=== PATIENT | female | born 1970 | race Caucasian/White ===

== ENCOUNTER → 2017-08-14 07:20 | Outpatient (CLI) | payer OTHER, SELFPAY ==
--- NOTE | 2017-08-14 07:20 | DT_ITS ---
This patient was seen during an EMR downtime August 12, 2017 - August 19, 2017. This patient may have a combination of paper and electronic documentation or all paper documentation. All documentation is viewable within the e-chart portion of [facility] for each patient visit.
--- NOTE | 2017-08-14 07:25 | BI_ITS ---
MAMMOGRAPHY - BILATERAL SCREENING REASON FOR EXAM: Female, 47 years old. Routine annual screening examination. PERTINENT HISTORY: NO FAM HX - RT ASPIRATION 1984 - U/S DONE AFTER LAST MAMM OF 2015 TECHNIQUE: Digital bilateral breast gage (3D mammographic acquisition) in the CC and MLO projections. 2-D mediolateral oblique (MLO) and craniocaudad (CC) views of both breasts were obtained. CAD: Full Field Digital Mammography with Computer Added Detection was performed. COMPARISON: 01/05/2016, 01/26/2014. FINDINGS: Breast Composition: The breasts are heterogeneously dense, which may obscure small masses. There are no dominant masses or suspicious calcifications. No other significant abnormalities are identified. BI/SCREENING MAMM (CAD), BILAT IMPRESSION: Stable bilateral screening mammogram. Yearly follow-up mammogram recommended. (A) ASSESSMENT CATEGORY: BIRADS Category 2: Benign. A letter regarding these results will be sent to the patient by the facility within 30 days. Approximately 10% of breast cancers are not detected by mammography. A normal mammogram should not delay biopsy of a clinically suspicious abnormality. [id number] Electronically Signed: Marcial Penn MD at 14:42 EDT Tel , Service support ,
== END ==
PROVIDERS: Family Provider Family Medicine; PCP Family Medicine; Visit Provider Family Medicine
DX: Z12.31 Encounter for screening mammogram for malignant neoplasm of breast (principal)
CPT/HCPCS: 77063; 77067

== ENCOUNTER → 2017-08-21 18:40 | Outpatient (CLI) | payer OTHER, SELFPAY ==
[2017-08-21 18:42] LABS: Bacteria 0 SEEN /hpf (None Seen); Mucous, Urine 0 SEEN /hpf (<or=2+); Red Blood Cells-Urine 0 SEEN /hpf (0-5); Squamous Epithelial Cells - UA 0 SEEN /hpf (5-10); White Blood Cells 0 SEEN /hpf (0-5)
[2017-08-21 19:11] LABS: Color, Urine Yellow (Yellow); Glucose, Dipstick Normal (Normal); Ketone-Dipstick Negative (Negative); Leukocyte Esterase-Dipstick 25 /ul (Negative); Nitrite-Dipstick Negative (Negative); Occult Blood-Urine Negative /ul (Negative); Protein-Dipstick Negative (Negative); Specific Gravity, Urine 1.005 (1.002-1.030); Urine Bilirubin Dipstick Negative (Negative); Urine Clarity Clear (Clear); Urine Urobilinogen Normal (Normal)
== END ==
PROVIDERS: Physician Assistant; Visit Provider Physician Assistant
DX: R30.0 Dysuria (principal)
CPT/HCPCS: 81001; 87086; 87088

== ENCOUNTER → 2018-03-07 10:26 | Outpatient (CLI) | payer OTHER, SELFPAY ==
[2017-10-25 11:16] VITALS: BMI 38.5
--- NOTE | 2018-03-07 10:30 | RAD_ITS ---
STUDY: X-RAY - LEFT HIP REASON FOR EXAM: Female, 47 years old. Gallbladder problems thank you thank you for TECHNIQUE: 2 views of the hip. COMPARISON: None. FINDINGS: Bilateral bipolar hip replacement seen. No obvious complication identified . Both iliac bones and sacroiliac joints are unremarkable. Calcifications noted around the right hip. RAD/HIP, UNI W/ Pelvis 2-3 Views IMPRESSION: Bilateral bipolar hip replacement. Electronically Signed: Reena De Leon, at 16:58 EST Tel , Service support ,
--- NOTE | 2018-03-07 10:33 | RAD_ITS ---
STUDY: X-RAY - LUMBAR SPINE REASON FOR EXAM: Female, 47 years old. TECHNIQUE: view(s) of the lumbar spine were obtained. COMPARISON: None FINDINGS: There is moderate rotoscoliosis of the lumbar spine convexity to the left. Otherwise the vertebral bodies are of normal height. No spondylolysis or spondylolisthesis seen. No significant narrowing of the disc spaces. RAD/L/S Spine Min 4 Views IMPRESSION: Levoscoliosis of the thoracolumbar junction with convexity to the left. Electronically Signed: Reena De Leon, at 16:55 EST Tel , Service support ,
== END ==
PROVIDERS: Family Provider Family Medicine; PCP Family Medicine; Referring Provider Family Medicine; Visit Provider Family Medicine
DX: M25.552 Pain in left hip (principal); M54.40 Lumbago with sciatica, unspecified side
CPT/HCPCS: 72110; 73502

== ENCOUNTER → 2018-03-21 07:04 | Outpatient (CLI) | payer OTHER, SELFPAY ==
--- NOTE | 2018-03-21 07:17 | MRI_ITS ---
STUDY: MRI LUMBAR SPINE WITHOUT CONTRAST REASON FOR EXAM: Female, 47 years old. LBP, Left leg pain, numbness left lower leg, NKI. TECHNIQUE: Standardized fat and water weighted pulse sequences were obtained in the sagittal and axial planes. COMPARISON: None FINDINGS: T12-L1: Sagittal only. There is moderate disc space narrowing and endplates spondylosis. Moderate right foraminal stenosis. Normal lumbar lordosis. There is a levoscoliosis of the lumbar spine. Normal conus medullaris that terminates at the T12 L1-2: There is moderate disc space narrowing and endplates spondylosis. L2-3: There is moderate disc space narrowing and endplates spondylosis. There is a moderate disc osteophyte complex asymmetric to the right with moderate right foraminal stenosis. There is no significant central canal or left foraminal stenosis. L3-4: There is moderate disc space narrowing and endplates spondylosis. There is a moderate disc osteophyte complex asymmetric to the left with severe left foraminal stenosis. There is no significant central canal or right foraminal stenosis. L4-5: There is minimal disc space narrowing and endplates spondylosis. There is no significant central canal or foraminal stenosis. There is moderate facet arthropathy. L5-S1: There is minimal disc space narrowing and endplates spondylosis. There is no significant central canal or foraminal stenosis. There is moderate facet arthropathy. Normal visualized sacral ala. Normal visualized paraspinous soft tissue structures. MRI/Spine Lumbar (Routine) IMPRESSION: Scoliosis and multilevel degenerative changes. L2/L3: Moderate right foraminal stenosis. L3/L4: Severe left foraminal stenosis. Electronically Signed: Birgit Redd MD at 11:02 EST Tel , Service support ,
== END ==
PROVIDERS: Family Provider Family Medicine; PCP Family Medicine; Referring Provider Family Medicine; Visit Provider Family Medicine
DX: M54.10 Radiculopathy, site unspecified (principal); M54.5 Low back pain; M25.552 Pain in left hip
CPT/HCPCS: 72148

== ENCOUNTER 2018-08-08 09:30 | Outpatient (RCR) | payer OTHER, SELFPAY ==
--- NOTE | 2018-06-18 12:50 | HP.PTEVAL ---
Patient's Visit Information JOSSE WARNER is a 47 year old F referred to Physical Therapy by Evangelist Holely DO with a diagnosis of LUMBAR MICRODISCECTOMY LEFT L34 ON 05/30/18.. Date of Evaluation: 06/18/18 Physical Therapist: Mary Orlando PT, Cert MDT - Visit Plan Frequency: 2-3x /Week Duration: 4-6 Weeks Plan: POSTURE CORRECTION/STRENGTHENING, INSTRUCTION IN APPROPRIATE BODY MECHANICS AND ACTIVITY MODIFICATIONS. DLS STARTING WITH A NEUTRAL SPINE X 3 WEEKS PROGRESSING ROM TOLERATED. VINCENT LE ROM, STRETCHING AND STRENGTHENING. HEP INSTRUCTION. 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 CURRENTLY OFF WORK WITH TENTATIVE RTW DATE OF AUGUST 11 2018. OFF WORK SINCE MAY 29 2018. Disability: NO. Present symptoms: LOW BACK PAIN. NO PAIN, NUMBNESS OR TINGLING VINCENT LE'S CURRENTLY. Present since: MAR 01 2018. Pain Scale: WORST 6/10, LEAST 2/10. Currently: 2/10. Commenced as a result of: NO APPARENT REASON. Symptoms at onset: PAIN IN LEFT GROIN AND HIP. Worse: EVENINGS. Better: LYING DOWN. Disturbed sleep: YES. Previous history/Previous treatment: PATIENT REPORTS EPISODIC LBP X ABOUT 25 YEARS. PHYSICAL THERAPY IN THE PAST. NO CHIRO. NO PRIOR SX. NO PAIN MGMT OR ANI'S. THIS EPISODE LEFT LEG KEPT GIVING OUT AT ONSET AND FELL THREE TIMES PRIOR TO SX. WENT BACK TO WORK WITH LLE NUMB AND KNEE BRACE. DID FALL AT WORK. Coughing/sneezing/straining: POSITIVE. Gait: NORMAL. NO ASSISTIVE DEVICES. NO FALLS SINCE SURGERY. Difficulty initiating urinatin: NO. Accidents: NO. Unexplained weight loss: NO. Imaging: MRI PRIOR TO SX: REASON FOR EXAM: Female, 47 years old. LBP, Left leg pain, numbness. left lower leg, NKI. TECHNIQUE: Standardized fat and water weighted pulse sequences were. obtained in the sagittal and axial planes. COMPARISON: None. . FINDINGS: T12-L1: Sagittal only. There is moderate disc space narrowing and. endplates spondylosis. Moderate right foraminal stenosis. Normal lumbar lordosis. There is a levoscoliosis of the lumbar spine. Normal conus medullaris that terminates at the T12. L1-2: There is moderate disc space narrowing and endplates spondylosis. L2-3: There is moderate disc space narrowing and endplates spondylosis. There is a moderate disc osteophyte complex asymmetric to the right with. moderate right foraminal stenosis. There is no significant central canal. or left foraminal stenosis. L3-4: There is moderate disc space narrowing and endplates spondylosis. There is a moderate disc osteophyte complex asymmetric to the left with. severe left foraminal stenosis. There is no significant central canal or. right foraminal stenosis. L4-5: There is minimal disc space narrowing and endplates spondylosis. There is no significant central canal or foraminal stenosis. There is. moderate facet arthropathy. L5-S1: There is minimal disc space narrowing and endplates spondylosis. There is no significant central canal or foraminal stenosis. There is. moderate facet arthropathy. Normal visualized sacral ala. Normal visualized paraspinous soft tissue structures. . MRI/Spine Lumbar (Routine). IMPRESSION: Scoliosis and multilevel degenerative changes. . L2/L3: Moderate right foraminal stenosis. . L3/L4: Severe left foraminal stenosis. . PMH: UNREMARKABLE. Recent major surgery: VINCENT THR'S, RIGHT 2010, LEFT 2012. PLOF (Prior Level of Function): UNLIMITED PRIOR TO FEB 2018. CURRENT SURGERY: LUMBAR MICRODISCECTOMY LEFT L3-L4 ON 05/30/18 (CURRENTLY ALMOST 3 WEEKS PO. CAUGHT A COLD FROM FAMILY LAST WEEK AND IS COUGHING. GOT A STOMACH BUG AFTER SURGERY TOO. - Objective Sitting/Standing Posture: RIGHT ILIAC CREST HIGHER THAN LEFT. LEFT HEEL LIFT. SCOLIOSIS. REDUCED LORDOSIS. Active Correction of posture: BETTER. ALSO FEELS A LOT BETTER WITH SUPPORT IN LOW BACK. Other Observations: INDEP GAIT INTO PT WITHOUT ANY ASSISTIVE DEVICES OR LOSS OF BALANCE. A LITTLE BIT OF A WADDLE TYPE GAIT. Motor deficit: RIGHT LE 5/5 EXCEPT HIP GRADED 4/5. LEFT LE: HIP 3+/5, KNEE EXT 4-/5, KNEE FLEX 4-/5, ANKLE 5/5. Sensory deficit: VINCENT LE LIGHT TOUCH SENSATION INTACT AND SYMMETRICAL. ROM deficit: TIGHT VINCENT HS'S LEFT > RIGHT. Reflexes: NT. Dural Signs: POSITIVE VINCENT LE'S. Lumbar mvmt loss: NT. Core strength: POOR. Palpation: INCISION LOOKS GOOD WITHOUT ANY SIGNS OF DRAINAGE OR INFECTION. PATIENT TO MONITOR DAILY. - Goals Goal 1:: DECREASE C/O LBP Goal Time Frame: 4-6 Weeks Goal 2:: IMPROVE PERSONAL CARE, LIFTING, WALKING, SITTING, STANDING, SLEEP, SOCIAL LIFE, TRAVEL AND HOMEMAKING FUNCTION Goal Time Frame: 4-6 Weeks Goal 3:: INSTRUCT IN PROPHYLAXIS Goal Time Frame: 4-6 Weeks - Rehabilitation Potential Rehabilitation Potential: Good - Anticipated Interventions Patient/Client Instruction: Educate patient on: Condition, Plan of Care, Risk Factors, Benefits of Fitness Program For the Purpose of:: To improve self management Therapeutic Exercise to Include: Strength training, Body mechanics, Postural training, Flexibilty training, Dynamic Lumbar Stabilization For the Purpose of:: To decrease pain, To improve muscle performance and motor function, To increase tolerance to activity/condition/position, To improve ability of physical actions for home/community/work/leisure, To improve gait and locomotor functions Thank you for the opportunity to evaluate your patient. For Medicare and Medicare HMO plans, please review the plan of care and approve it. It will need to be FAXED BACK to us at [phone] for Medicare purposes. For Medicare only, by signing this I certify the plan of care. Please let me know if there are questions or concerns regarding this plan of care. Physician Signature: Date:
--- NOTE | 2018-07-09 10:58 | HP.PTREVAL ---
Evangelist Holley, DO, It has been my pleasure to treat JOSSE WARNER over the last 9 visits for LUMBAR MICRODISCECTOMY LEFT L3-L4 ON 05/30/18.. Please see the progress note below for an update on the physical therapy plan of care! Subjective: PATIENT REPORTS HER FIRST POOL VISIT WENT WELL. STATES SHE IS DOING HER HEP AND GETTING READY TO LEAVE ON VACATION. WILL TAKE THE BANDS WITH HER. PATIENT REPORTS HER LEFT LEG IS GETTING STRONGER AND SHE HASN'T HAD ANY MORE FALLS. Objective/Function: Sitting/Standing Posture: RIGHT ILIAC CREST HIGHER THAN LEFT. LEFT HEEL LIFT. SCOLIOSIS. REDUCED LORDOSIS. Active Correction of posture: BETTER. ALSO FEELS A LOT BETTER WITH SUPPORT IN LOW BACK. Other Observations: INDEP GAIT INTO PT WITHOUT ANY ASSISTIVE DEVICES OR LOSS OF BALANCE. LESS WADDLE TYPE GAIT. Motor deficit: RIGHT LE 5/5 EXCEPT HIP GRADED 4/5. LEFT LE: HIP FLEX 4-/5, IR 4-/5, EXTENSION 3+/5, EXTERAL ROATION 3+/5. KNEE EXT 4/5, KNEE FLEX 4/5, ANKLE 5/5. Sensory deficit: VINCENT LE LIGHT TOUCH SENSATION INTACT AND SYMMETRICAL. ROM deficit: TIGHT VINCENT HS'S LEFT > RIGHT. Reflexes: NT. Dural Signs: NEGATIVE VINCENT LE'S. Core strength: POOR. Palpation: INCISION LOOKS GOOD WITHOUT ANY SIGNS OF DRAINAGE OR INFECTION. LUMBAR MVMT LOSS: FLEX - MOD. EXT - MOD. RSG - ANAIS. LSG - MOD. PATIENT DENIES INCREASED PAIN WITH LUMBAR ROM TESTING ALL PLANES TODAY. LUMBAR OSWESTRY SCORE HAS IMPROVED FROM 20 TO 11. Plan Plan: RECOMMEND CONT PT 2-3 TIMES A WEEK X 4-6 WEEKS...WHEN PATIENT RETURNS FROM VACATION PLAN PRE TO HELP PATIENT PREPARE FOR LIFTING, PUSHING AND PULLING AT WORK WITH RTW DATE OF AUGUST 11 2018. PATIENT ESPECIALLY NEEDS LEFT HIP ABD, EXT AND EXTERNAL ROTATION STRENGTHENING. SHE HAS HOME EX'S FOR THIS TOO. PATIENT AGREEABLE. Goals Goal 1:: DECREASE C/O LBP Goal Time Frame: 4-6 Weeks Goal Progress: Progressing Goal 2:: IMPROVE PERSONAL CARE, LIFTING, WALKING, SITTING, STANDING, SLEEP, SOCIAL LIFE, TRAVEL AND HOMEMAKING FUNCTION Goal Time Frame: 4-6 Weeks Goal Progress: Progressing Goal 3:: INSTRUCT IN PROPHYLAXIS Goal Time Frame: 4-6 Weeks Goal Progress: Progressing Anticipated Interventions Patient/Client Instruction: Educate patient on: Condition, Plan of Care, Risk Factors, Benefits of Fitness Program For the Purpose of:: To improve self management Therapeutic Exercise to Include: Strength training, Body mechanics, Postural training, Flexibilty training, Dynamic Lumbar Stabilization For the Purpose of:: To decrease pain, To improve muscle performance and motor function, To increase tolerance to activity/condition/position, To improve ability of physical actions for home/community/work/leisure, To improve gait and locomotor functions Please do not hesitate to contact me at [phone] by phone or if you have questions or concerns regarding this new plan of care! Sincerely, Mary Orlando, PT, Cert MDT
--- NOTE | 2018-08-08 15:51 | HP.PTDCSUM ---
HP - PT D/C Summary It has been my pleasure to treat JOSSE WARNER under orders from Evangelist Holley DO, for the diagnosis of LUMBAR MICRODISCECTOMY LEFT L3-L4 ON 05/30/18. for a total of 16 visit(s). Discharge Date: 08/08/18 Please see the following information for a summary of their discharge status. - Subjective Subjective: PATIENT REPORTS THE POOL HELPED HER WORK ON HER POSTURE. 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 STATES SHE FEELS READY TO GO BACK TO WORK. SHE REPORTS SHE IS PAINFREE A GOOD PART OF THE DAY NOW AND IS AT LEAST 90% BETTER. PATIENT REPORTS SHE IS A LOT STRONGER, HAVING LESS PAIN AND WALKING BETTER. STATES SHE HASN'T BEEN DOING THIS GOOD FOR OVER 6 YEARS. - Pain LOW BACK Pain Intensity (Out of 10): 1 - Overall Improvement % Improvement: 90 - Objective Objective/Function: UPON EXAM TODAY: PATIENT DEMONSTRATES INDEP GAIT INTO PT WITHOUT ANY ASSISTIVE DEVICES OR LOSS OF BALANCE. SHE IS WALKING WITH A MORE NORMAL BASE OF SUPPORT WITH TOES POINTING FORWARD VS THE WIDER BASE OF SUPPORT WITH TOES POINTING OUT LIKE BEFORE. Motor deficit: RIGHT LE 5/5. LEFT LE: HIP FLEX 4/5, IR 4/5, EXTERAL ROATION 3+/5. KNEE EXT 5/5, KNEE FLEX 5/5, ANKLE 5/5. Sensory deficit: VINCENT LE LIGHT TOUCH SENSATION INTACT AND SYMMETRICAL. ROM deficit: TIGHT VINCENT HS'S LEFT > RIGHT. Reflexes: NT. Dural Signs: NEGATIVE VINCENT LE'S. Core strength: POOR. LUMBAR MVMT LOSS: FLEX - MIN. EXT - MIN. RSG - MOD. LSG - MIN. PATIENT DENIES INCREASED PAIN WITH LUMBAR ROM TESTING ALL PLANES TODAY. LUMBAR OSWESTRY SCORE HAS IMPROVED FROM 20 TO 11 AND NOW 5. - Goals Goal 1:: DECREASE C/O LBP Goal Progress: Goal Met Goal 2:: IMPROVE PERSONAL CARE, LIFTING, WALKING, SITTING, STANDING, SLEEP, SOCIAL LIFE, TRAVEL AND HOMEMAKING FUNCTION Goal Progress: Goal Met Goal 3:: INSTRUCT IN PROPHYLAXIS Goal Progress: Goal Met - Plan Plan: D/C TO INDEP EX. PATIENT AGREEABLE. - D/C Information If there are questions or concerns regarding this patient's physical therapy, please feel free to call me at [phone]. Thank you for the referral of this patient. Sincerely, Mary Orlando PT, Cert MDT
== END 2018-08-08 19:00 | disposition home or self-care (01) ==
LOC: PT 09:30
PROVIDERS: Family Provider Family Medicine; PCP Family Medicine; Referring Provider Orthopaedic Surgery; Visit Provider Orthopaedic Surgery
DX: Z48.89 Encounter for other specified surgical aftercare (principal)
CPT/HCPCS: 97110; 97113; 97162; 97530

== ENCOUNTER → 2018-08-11 | Outpatient (CLI) | payer OTHER, SELFPAY ==
[2017-10-25 11:16] VITALS: BMI 38.5
--- NOTE | 2018-08-11 08:43 | BI_ITS ---
MAMMOGRAPHY - BILATERAL SCREENING REASON FOR EXAM: Female, 48 years old. Routine annual screening examination. PERTINENT HISTORY: Non-contributory. TECHNIQUE: Digital bilateral breast jameson (3D mammographic acquisition) in the CC and MLO projections. 2-D mediolateral oblique (MLO) and craniocaudad (CC) views of both breasts were obtained. CAD: Full Field Digital Mammography with Computer Added Detection was performed. COMPARISON: Comparison is made with prior study dated 04/16/2018 and January 05, 2016. FINDINGS: Breast Composition: There are scattered areas of fibroglandular density. There are no dominant masses or suspicious calcifications. Stable appearance of the small some centimeter nodular densities in the deep mid left breast. No other significant abnormalities are identified. There has been no significant change since the prior study. BI/SCREEN MAMM (CAD) W/JAMESON BILAT IMPRESSION: Stable bilateral screening mammogram. Yearly follow-up mammogram recommended. (A) ASSESSMENT CATEGORY: BIRADS Category 2: Benign. A letter regarding these results will be sent to the patient by the facility within 30 days. Approximately 10% of breast cancers are not detected by mammography. A normal mammogram should not delay biopsy of a clinically suspicious abnormality. [id number] Electronically Signed: Bentley Landa, at 12:46 EDT , Service support ,
== END | disposition home or self-care (01) ==
LOC: OPBI 08:41
PROVIDERS: Family Provider Family Medicine; PCP Family Medicine; Referring Provider Obstetrics & Gynecology; Visit Provider Obstetrics & Gynecology
DX: Z12.31 Encounter for screening mammogram for malignant neoplasm of breast (principal)
CPT/HCPCS: 77063; 77067

== ENCOUNTER → 2018-11-17 13:35 | Outpatient (CLI) | payer OTHER, SELFPAY ==
[2018-11-12 09:11] VITALS: BMI 38.5
--- NOTE | 2018-11-17 13:36 | US_ITS ---
STUDY: ULTRASOUND OF THE PELVIS CLINICAL: Female, 48 years old. Fibroids TECHNIQUE: Transvaginal and transabdominal COMPARISON: None. FINDINGS: Normal uterine size measuring 11.4 x 8.0 x 6.2 cm in maximal craniocaudal dimension. There are multiple fibroids with the largest measuring 4.3 x 3.6 x 4.6 cm. Smaller fibroids measure 1.7 cm. Normal endometrial thickness measuring 11 mm. There are no endometrial masses, and there is no fluid in the endometrial cavity. Nabothian cyst at the uterine cervix. The ovaries are not visualized. There is no free fluid in the pelvis. US/Transvaginal Non- IMPRESSION: Uterine fibroids. Nabothian cyst. Electronically Signed: Andrew Price DO at 23:13 EDT Tel [phone], Service support ,
== END ==
PROVIDERS: Family Provider Family Medicine; PCP Family Medicine; Referring Provider Obstetrics & Gynecology; Visit Provider Obstetrics & Gynecology
DX: D25.9 Leiomyoma of uterus, unspecified (principal)
CPT/HCPCS: 76830

== ENCOUNTER → 2019-02-02 14:47 | Outpatient (CLI) | payer OTHER, SELFPAY ==
[2019-02-02 07:48] VITALS: BMI 38.5
[2019-02-02 15:01] LABS: Bacteria 0 SEEN /hpf (None Seen); Mucous, Urine 0 SEEN /hpf (<or=2+); Squamous Epithelial Cells - UA 0 SEEN /hpf (5-10)
[2019-02-02 15:54] LABS: Color, Urine Yellow (Yellow); Glucose, Dipstick Normal (Normal); Ketone-Dipstick Negative (Negative); Leukocyte Esterase-Dipstick 100 /ul (Negative); Nitrite-Dipstick Negative (Negative); Occult Blood-Urine 10 /ul (Negative); Protein-Dipstick Negative (Negative); Urine Bilirubin Dipstick Negative (Negative); Urine Clarity Clear (Clear); Urine Urobilinogen Normal (Normal)
[2019-02-02 16:14] LABS: Red Blood Cells-Urine 0-5 SEEN /hpf (0-5); White Blood Cells 0-5 SEEN /hpf (0-5)
== END ==
PROVIDERS: Family Provider Family Medicine; PCP Family Medicine; Referring Provider Physician Assistant Surgical; Visit Provider Physician Assistant Surgical
DX: R35.0 Frequency of micturition (principal)
CPT/HCPCS: 81001; 87086; 87088

== ENCOUNTER → 2019-02-16 17:45 | Outpatient (CLI) | payer OTHER, SELFPAY ==
[2019-02-16 11:10] VITALS: BMI 38.5
== END ==
PROVIDERS: PCP Family Medicine; Visit Provider Obstetrics & Gynecology
DX: N39.0 Urinary tract infection, site not specified (principal)
CPT/HCPCS: 87086; 87088

== ENCOUNTER 2019-04-10 07:33 | Outpatient (RCR) | payer OTHER, SELFPAY ==
[2019-02-16 11:10] VITALS: BMI 38.5
--- NOTE | 2019-04-13 14:58 | MASS.EVAL_ITS ---
Massage Therapy Evaluation: Initial Evaluation Date: 04/10/2019 SUBJECTIVE: Anny is a 48 year old female who was referred to the [facility] facility for a massotherapy evaluation by Dr. Quevedo with the diagnosis of neck and low back pain. She presents today with the symptoms of pain, stiffness and tension in the neck, mid back, low back and hips. She also has a history of a microdiscectomy procedure in May 2018. She has had a great response to her surgery. OBJECTIVE: Upon observation Anny has some posture issues with her head and shoulders forward from the neutral position in sitting and standing. After examination and palpation, I found Anny to have high muscle tension with tenderness and myofascial restrictions in her sub occipitals, levator scapulae, trapezius, rhomboids, scalenes, and thoracic paraspinals. Her QL?s, lumbar paraspinals, piriformis, glute medius and minimus all were very tight with fascial restrictions, tender points and trigger points. The first treatment consisted of a one hour massage to her upper body with myofascial release, muscle stripping, trigger point compression techniques, and cervical manual traction. ASSESSMENT: I feel that Anny is a good candidate for massotherapy at this time. She had a favorable response to the first treatment with reduction in her muscle aches, pain and tension. She also had improvement in her cervical flexibility and low back flexibility. PLAN: The plan of care was reviewed with the patient. The patient is to be seen on an as needed basis for a total of ten sessions with the recommendation of once every month for a one hour treatment.
--- NOTE | 2020-02-17 17:08 | DS.PCM_ITS ---
Massage Therapy Discharge Summary: Discharge Date: 02/17/2020 Anny was seen for a massotherapy evaluation on 04/10/2019 with the diagnosis of neck and low back pain. She was treated with one sessions of massage therapy consisting of deep pressure soft tissue techniques, myofascial release and trigger point compression to her cervical, thoracic, lower back and hips. At this time this patient is being discharged from our care at [facility] facility.
== END 2019-04-10 19:00 | disposition home or self-care (01) ==
LOC: MASS 07:33
PROVIDERS: Family Provider Family Medicine; PCP Family Medicine; Referring Provider Family Medicine; Visit Provider Family Medicine
DX: M54.2 Cervicalgia (principal); M54.5 Low back pain
CPT/HCPCS: 97124

== ENCOUNTER → 2019-04-27 10:28 | Outpatient (REF) | payer OTHER, SELFPAY ==
[2019-04-27 09:35] VITALS: BMI 41.2
== END ==
LOC: HPRAD 10:28
PROVIDERS: PCP Family Medicine; Referring Provider Chiropractor; Visit Provider Chiropractor
DX: M41.9 Scoliosis, unspecified (principal); M99.03 Segmental and somatic dysfunction of lumbar region; M99.05 Segmental and somatic dysfunction of pelvic region
CPT/HCPCS: 72110

== ENCOUNTER → 2019-09-09 07:40 | Outpatient (CLI) | payer OTHER, SELFPAY ==
[2019-05-26 09:14] VITALS: BMI 41.2
--- NOTE | 2019-09-09 07:36 | BI_ITS ---
MAMMOGRAPHY - BILATERAL SCREENING REASON FOR EXAM: Female, 49 years old. Routine annual screening examination. PERTINENT HISTORY: Non-contributory. TECHNIQUE: Digital bilateral breast jameson (3D mammographic acquisition) in the CC and MLO projections. 2-D mediolateral oblique (MLO) and craniocaudad (CC) views of both breasts were obtained. CAD: Full Field Digital Mammography with Computer Added Detection was performed. COMPARISON: Comparison is made with prior examination dated August 11, 2018 and August 14, 2017. FINDINGS: Breast Composition: There are scattered areas of fibroglandular density. There are no dominant masses or suspicious calcifications. Stable appearance of the small subcentimeter well-defined nodular densities in the deep midportion of the left breast. No other significant abnormalities are identified. There has been no significant change since the prior study. BI/SCREEN MAMM (CAD) W/JAMESON BILAT IMPRESSION: Stable bilateral screening mammogram. Yearly follow-up mammogram recommended. (A) ASSESSMENT CATEGORY: BIRADS Category 2: Benign. A letter regarding these results will be sent to the patient by the facility within 30 days. Approximately 10% of breast cancers are not detected by mammography. A normal mammogram should not delay biopsy of a clinically suspicious abnormality. [id number] Electronically Signed: Bentley Landa, at 9:15 EDT , Service support ,
== END ==
PROVIDERS: PCP Family Medicine; Referring Provider Family Medicine; Visit Provider Family Medicine
DX: Z12.31 Encounter for screening mammogram for malignant neoplasm of breast (principal)
CPT/HCPCS: 77063; 77067

== ENCOUNTER → 2019-11-17 06:49 | Outpatient (CLI) | payer OTHER, SELFPAY ==
[2019-05-26 09:14] VITALS: BMI 41.2
--- NOTE | 2019-11-17 06:50 | CT_ITS ---
STUDY: CT ABDOMEN AND PELVIS WITH AND WITHOUT CONTRAST REASON FOR EXAM: Female, 49 years old. HEMATURIA, RECURRENT UTI RADIATION DOSAGE (If Supplied By Facility): CTDIvol = ( 26.22 ) mGy, DLP = ( 4691.35 ) mGycm TECHNIQUE: Transaxial images were obtained from the dome of the diaphragm to the symphysis pubis without oral contrast. IV 100mL Isovue-[id number] was administered. Sagittal and coronal images were reconstructed. Individualized dose optimization techniques were used for this CT. COMPARISON: None. FINDINGS: The visualized lung bases are unremarkable. The visualized portions of the heart are within normal limits. There is decreased attenuation of the liver consistent with steatosis. Normal gallbladder and extrahepatic biliary system. Normal spleen. Normal pancreas. Normal bilateral adrenal glands. Normal right kidney. Normal left kidney. Normal visualized stomach. Normal small intestine. There are scattered colonic diverticula consistent with diverticulosis. The appendix is visualized and appears normal. Normal abdominal aorta. Normal inferior vena cava. There is borderline retroperitoneal lymphadenopathy with enlarged nodes no greater than 10mm in the short axis diameter. Normal urinary bladder. Evidence of bilateral tubal ligation. There is a small umbilical hernia containing fat. There are diffuse degenerative changes of the visualized lumbar spine. Bilateral hip replacements. CT/CT Abd/Pelvis W/WO Contrast IMPRESSION: Fatty infiltration of the liver. Scattered colonic diverticula. Electronically Signed: Bentley Landa, at 8:13 EDT , Service support ,
== END ==
PROVIDERS: PCP Family Medicine; Referring Provider Urology; Visit Provider Urology
DX: N39.0 Urinary tract infection, site not specified (principal); R31.9 Hematuria, unspecified
CPT/HCPCS: 74178; Q9967

== ENCOUNTER → 2019-12-07 16:43 | Outpatient (CLI) | payer OTHER, SELFPAY ==
[2019-12-07 08:40] VITALS: BMI 41.2
[2019-12-11 04:31] LABS: HPV APTIMA, High Risk Negative (Negative)
== END ==
PROVIDERS: PCP Family Medicine; Referring Provider Obstetrics & Gynecology; Visit Provider Obstetrics & Gynecology
DX: Z12.4 Encounter for screening for malignant neoplasm of cervix (principal)
CPT/HCPCS: 87624; 88175; G0145

== ENCOUNTER → 2019-12-15 07:06 | Outpatient (CLI) | payer OTHER, SELFPAY ==
[2019-05-26 09:14] VITALS: BMI 41.2
[2019-12-07 08:40] VITALS: BMI 41.2
--- NOTE | 2019-12-16 08:33 | PFT ---
INTRODUCTION: The patient is a 49-year-old female that presents for pulmonary function studies secondary to a diagnosis of asthma. Respiratory therapy reports good patient effort. Bronchodilators were used during testing. INTERPRETATION: Forced expiration spirometry demonstrates no evidence of a large airways obstructive ventilatory defect. There was no significant response to aerosolized bronchodilators, based upon strict ATS criteria. Spirograms are of good quality and plateau normally. Body plethysmography was performed and reveals lung volumes to be within normal limits. Diffusing capacity by single breath CO is also within normal limits. IMPRESSION: Grossly normal pulmonary function studies.
== END ==
PROVIDERS: PCP Family Medicine; Referring Provider Family Medicine; Visit Provider Family Medicine
DX: J45.909 Unspecified asthma, uncomplicated (principal); R06.00 Dyspnea, unspecified
CPT/HCPCS: 94060; 94726; 94729

== ENCOUNTER 2019-12-18 07:30 | Outpatient (RCR) | payer OTHER, SELFPAY ==
[2019-05-26 09:14] VITALS: BMI 41.2
--- NOTE | 2019-11-23 08:31 | HP.PTEVAL_ITS ---
Patient's Visit Information JOSSE WARNER is a 49 year old F referred to Physical Therapy by Dr. Jeanne Quevedo DO with a diagnosis of Pes planus. Date of Evaluation: 11/23/19 Physical Therapist: SILVIA Ramsey - Visit Plan Frequency: 1x/Week Duration: 4 Weeks Plan: Send out molds to [facility] and fit pt with orthotics - Subjective Her current orthotics are 2-3 years old and they are falling apart/ L leg is shorter than the R leg so not sure how much has to be added. Pt reports that she has B flat feet. She has back pain. She has had back surgery and B hip replacement. She is on her feet all day. Orthotics helped her the last time. shoe size 13. Ht 5'9. wt 261. B flat feet - Pain Back pain Pain Intensity (Out of 10): 5 - Objective Gait: Walks with forefoot abd B and hind foot eversion. Able to walk on heels and toes with some LOB. Observation: B eversion and forefoot abd (flat foot). L leg is shorter than the R by at least 1/2 inch. Tight B gastroc complex - Goals Goal 1:: Fit pt with orthotics Goal Time Frame: 4-6 Weeks - Rehabilitation Potential Rehabilitation Potential: Good - Anticipated Interventions Patient/Client Instruction: Educate patient on: Condition, Plan of Care Thank you for the opportunity to evaluate your patient. For Medicare and Medicare HMO plans, please review the plan of care and approve it. It will need to be FAXED BACK to us at [phone] for Medicare purposes. For Medicare only, by signing this I certify the plan of care. Please let me know if there are questions or concerns regarding this plan of care. Physician Sign ature: Date:
--- NOTE | 2020-02-10 10:27 | HP.PTDCSUM ---
It has been my pleasure to treat JOSSE WARNER referred by Dr. Jeanne Quevedo DO, with the diagnosis of Pes planus for a total of 2 visit(s). Discharge Date: 02/10/20 Please see the following information for a summary of their discharge status. Subjective: I am ready for my orthotics Back pain Pain Intensity (Out of 10): 0 % Improvement: 100 Objective/Function: Orthotics fit appropriately Goal 1:: Fit pt with orthotics Plan: discharge Discharge Comments: Discharge PT If there are questions or concerns regarding this patient's physical therapy, please feel free to call me at [phone]. Thank you for the referral of this patient. Sincerely, SILVIA Ramsey
== END 2019-12-18 19:00 | disposition home or self-care (01) ==
LOC: PT 07:30
PROVIDERS: PCP Family Medicine; Referring Provider Family Medicine; Visit Provider Family Medicine
DX: M21.40 Flat foot [pes planus] (acquired), unspecified foot (principal)
CPT/HCPCS: 97161; 97530; 97760; 97763

== ENCOUNTER → 2020-05-26 12:00 | Outpatient (CLI) | payer OTHER, SELFPAY ==
[2019-12-07 08:40] VITALS: BMI 41.2
--- NOTE | 2020-05-26 12:03 | RAD_ITS ---
STUDY: X-RAY - RIGHT KNEE REASON FOR EXAM: Female, 49 years old. Right knee pain from injury 2 weeks ago. TECHNIQUE: 4 view(s) of the knee. COMPARISON: 10/25/2011 FINDINGS: Normal visualized distal femur. Normal visualized proximal tibia and fibula. Normal proximal tibiofibular articulation. Progression of medial compartmental arthrosis since the prior study with increased osteophyte formation. Mild lateral compartmental arthrosis. Lateral tilt of the patella with mild arthrosis of the patellofemoral compartment unchanged. The soft tissue structures are unremarkable. RAD/Knee 4 or More Views IMPRESSION: Stable lateral and patellofemoral compartmental arthrosis. Progression of medial compartmental arthrosis compared to the prior study. No acute finding. Electronically Signed: Solitario Velasquez MD at 13:56 EDT , Service support ,
== END ==
PROVIDERS: PCP Family Medicine; Referring Provider Family Medicine; Visit Provider Family Medicine
DX: M25.561 Pain in right knee (principal); S83.8X1A Sprain of other specified parts of right knee, initial encounter
CPT/HCPCS: 73564

== ENCOUNTER → 2020-10-04 07:06 | Outpatient (CLI) | payer OTHER, SELFPAY ==
[2019-12-07 08:40] VITALS: BMI 41.2
--- NOTE | 2020-10-04 07:08 | BI_ITS ---
MAMMOGRAPHY - BILATERAL SCREENING REASON FOR EXAM: Female, 50 years old. Routine annual screening examination. PERTINENT HISTORY: Non-contributory. TECHNIQUE: Digital bilateral breast jameson (3D mammographic acquisition) in the CC and MLO projections. 2-D mediolateral oblique (MLO) and craniocaudad (CC) views of both breasts were obtained. CAD: Full Field Digital Mammography with Computer Added Detection was performed. COMPARISON: Comparison is made with prior study dated 09/09/2019 and 08/11/2018 FINDINGS: Breast Composition: There are scattered areas of fibroglandular density. There are no dominant masses or suspicious calcifications. Stable 9 mm nodule in the deep central lateral portion of the left breast. This most likely represents a small lymph node. No other significant abnormalities are identified. There has been no significant change since the prior study. BI/SCRN MAMM (CAD)W/JAMESON BILAT IMPRESSION: Stable bilateral screening mammogram. Yearly follow-up mammogram recommended. (A) ASSESSMENT CATEGORY: BIRADS Category 2: Benign. A letter regarding these results will be sent to the patient by the facility within 30 days. Approximately 10% of breast cancers are not detected by mammography. A normal mammogram should not delay biopsy of a clinically suspicious abnormality. [id number] Electronically Signed: Bentley Landa MD at 8:46 EDT , Service support ,
== END ==
PROVIDERS: PCP Family Medicine; Referring Provider Family Medicine; Visit Provider Family Medicine
DX: Z12.31 Encounter for screening mammogram for malignant neoplasm of breast (principal)
CPT/HCPCS: 77063; 77067

== ENCOUNTER → 2021-08-18 | Outpatient (CLI) | payer OTHER, SELFPAY ==
[2021-08-18 10:43] LABS: Bacteria 0 SEEN /hpf (None Seen); Mucous, Urine 0 SEEN /hpf (<or=2+)
[2021-08-18 10:46] LABS: Color, Urine Yellow (Yellow); Glucose, Dipstick Normal (Normal); Ketone-Dipstick Negative (Negative); Leukocyte Esterase-Dipstick 25 /ul (Negative); Nitrite-Dipstick Negative (Negative); Occult Blood-Urine 10 /ul (Negative); Protein-Dipstick Negative (Negative); Specific Gravity, Urine 1.005 (1.002-1.030); Urine Bilirubin Dipstick Negative (Negative); Urine Clarity Sl. Cloudy (Clear); Urine Urobilinogen Normal (Normal); Urine pH 6.5 (5.0 - 8.0)
[2021-08-18 10:52] LABS: Red Blood Cells-Urine 0-5 SEEN /hpf (0-5); Squamous Epithelial Cells - UA 0-5 SEEN /hpf (5-10); White Blood Cells 0-5 SEEN /hpf (0-5)
== END | disposition home or self-care (01) ==
PROVIDERS: PCP Family Medicine; Visit Provider Physician Assistant Surgical
DX: N39.0 Urinary tract infection, site not specified (principal)
CPT/HCPCS: 81001; 87077; 87086; 87088; 87186

== ENCOUNTER → 2021-10-12 | Outpatient (CLI) | payer OTHER, SELFPAY ==
--- NOTE | 2021-10-12 07:04 | BI_ITS ---
MAMMOGRAPHY - BILATERAL SCREENING 3-D TOMOSYNTHESIS REASON FOR EXAM: Female, 51 years old. Annual screening mammogram. PERTINENT HISTORY: History of right breast aspiration. TECHNIQUE: 2-D mammograms and 3-D Tomosynthesis of the breast (s) were performed. CAD was performed. COMPARISON: 10/04/2020, 09/09/2019. FINDINGS: The breast composition is composed of scattered fibroglandular density. No dense spiculated masses or suspicious microcalcifications are identified. No architectural distortion is identified. There is no skin thickening or retraction. BI/SCRN MAMM (CAD)W/JAMESON BILAT IMPRESSION: No interval change and no mammographic signs of malignancy. Routine yearly mammograms recommended. ASSESSMENT CATEGORY: BIRADS Category 2: Benign. A letter regarding these results will be sent to the patient by the facility within 30 days. FOLLOW UP RECOMMENDATION: Yearly follow up mammogram recommended. (A) Approximately 10% of breast cancers are not detected by mammography. A normal mammogram should not delay biopsy of a clinically suspicious abnormality. Electronically Signed: Solitario Velasquez MD at 15:21 EDT ,
== END | disposition home or self-care (01) ==
LOC: OPBI 07:03
PROVIDERS: PCP Family Medicine; Referring Provider Family Medicine; Visit Provider Family Medicine
DX: Z12.31 Encounter for screening mammogram for malignant neoplasm of breast (principal)
CPT/HCPCS: 77063; 77067

== ENCOUNTER → 2021-10-31 | Outpatient (CLI) | payer OTHER, SELFPAY ==
[2021-10-31 10:55] LABS: Bacteria 0 SEEN /hpf (None Seen); Mucous, Urine 0 SEEN /hpf (<or=2+); Squamous Epithelial Cells - UA 0 SEEN /hpf (5-10); White Blood Cells 0 SEEN /hpf (0-5)
[2021-10-31 11:17] LABS: Color, Urine Yellow (Yellow); Glucose, Dipstick Normal (Normal); Ketone-Dipstick Negative (Negative); Leukocyte Esterase-Dipstick Negative /ul (Negative); Nitrite-Dipstick Negative (Negative); Occult Blood-Urine 10 /ul (Negative); Protein-Dipstick Negative (Negative); Urine Bilirubin Dipstick Negative (Negative); Urine Clarity Sl. Cloudy (Clear); Urine Urobilinogen Normal (Normal)
[2021-10-31 11:42] LABS: Red Blood Cells-Urine 0-5 SEEN /hpf (0-5)
== END | disposition home or self-care (01) ==
LOC: LABSPEC 10:40
PROVIDERS: PCP Family Medicine; Referring Provider Physician Assistant Surgical; Visit Provider Physician Assistant Surgical
DX: N39.0 Urinary tract infection, site not specified (principal)
CPT/HCPCS: 81001; 87086; 87088

== ENCOUNTER → 2021-12-04 | Outpatient (CLI) | payer OTHER, SELFPAY ==
[2021-12-04 10:08] LABS: Color, Urine Yellow (Yellow); Glucose, Dipstick Normal (Normal); Ketone-Dipstick Negative (Negative); Leukocyte Esterase-Dipstick Negative /ul (Negative); Nitrite-Dipstick Negative (Negative); Occult Blood-Urine 25 /ul (Negative); Protein-Dipstick Negative (Negative); Specific Gravity, Urine 1.015 (1.002-1.030); Urine Bilirubin Dipstick Negative (Negative); Urine Clarity Clear (Clear); Urine Urobilinogen Normal (Normal)
[2021-12-04 10:48] LABS: AST(SGOT) 35 U/L (15-37); Alanine Aminotransfer ALT/SGPT 62 U/L (13-56); Albumin, Serum 3.6 g/dL (3.2-5.0); Alkaline Phosphatase 84 U/L (45-117); Bilirubin, Direct 0.12 mg/dL (0.00-0.30); Cholesterol 218 mg/dL (200); Globulin 3.5 g/dL (2.2-4.2); High Density Lipoprotein 75 mg/dL; Protein, Total 7.1 g/dL (6.4-8.2); Triglycerides 120 mg/dL; Very Low Density Lipoprotein 24 mg/dL (5-40)
== END | disposition home or self-care (01) ==
PROVIDERS: PCP Family Medicine; Referring Provider Family Medicine; Visit Provider Family Medicine
DX: E78.5 Hyperlipidemia, unspecified (principal); N39.0 Urinary tract infection, site not specified; Z51.81 Encounter for therapeutic drug level monitoring
CPT/HCPCS: 36415; 80061; 80076; 81002

== ENCOUNTER 2022-01-25 07:45 | Day surgery (SDC) | payer OTHER, SELFPAY ==
[2022-01-25] VITALS (7 sets, daily range): BP systolic 96–135; BP diastolic 56–86; PULSE 58–72; RESP 16; TEMP 36.4–36.6; O2SAT 94–100; BMI 39.6
[2022-01-25] MEDS: Lactated Ringers 1,000 ML 15 ML IV (08:00)
--- NOTE | 2022-01-25 08:52 | HP.PCM_ITS ---
HPI - General General Date of Admission: 01/25/22 Date of Service: 01/25/22 Chief Complaint: Screening colonoscopy HPI Narrative JOSSE WARNER, is a 51 F who presents today for screening colonoscopy. Has a past mild hypertension, uterine fibroids, pelvic pain and scoliosis. He did not have abdominal pain. She does not have any nausea. She does not have any chest pain or shortness of breath. She denies any weakness. She denies any bright red blood per rectum or diarrhea. Overall she is in fairly good health. All other 16 review of systems negative except as per positive mentioned HPI. [facility] Medical History (Updated 01/24/22 @ 08:50 by Shameka Rodríguez) Anemia Anxiety Arthritis Asthma Back pain Bilateral headaches Former smoker Gastric reflux GERD (gastroesophageal reflux disease) High blood cholesterol History of steroid therapy HTN (hypertension) Hx of abnormal cervical Pap smear Hyperlipidemia Hypoglycemia Insomnia Leg cramps Migraine headache Mood swings Neuropathy Osteoarthritis Post-menopausal Seasonal allergies Wears glasses Home Medications buspirone 10 mg tablet 10 mg PO BID 09/13/17 [History Last Taken Unknown] fluoxetine 40 mg capsule 40 mg PO QDAY 09/13/17 [History Last Taken Unknown] omeprazole 40 mg capsule,delayed release 40 mg PO QDAY 09/13/17 [History Last Taken Unknown] mifgtnh-matjqcfiesrak-ihjwjhqq 250 mg-250 mg-65 mg tablet (Excedrin Migraine) 1 tab PO ONCE PRN MIGRAINES 04/27/19 [History Last Taken Unknown] atenolol 50 mg tablet 75 mg PO DAILY 04/27/19 [History Last Taken Unknown] ibuprofen 400 mg tablet 400 mg PO Q8H PRN Pain 04/27/19 [History Last Taken Unknown] docusate sodium 100 mg capsule (Colace) 100 mg PO DAILY 10/30/21 [History Last Taken Unknown] pravastatin 20 mg tablet 40 mg PO DAILY 10/30/21 [History Last Taken Unknown] Lactobacillus acidophilus 10 billion cell capsule (Probiotic) 10,000 mmu cells PO DAILY 01/24/22 [History Last Taken Unknown] calcium carbonate 600 mg-vitamin D3 5 mcg (200 unit) tablet 1 tab PO DAILY 01/24/22 [History Last Taken Unknown] cetirizine 10 mg disintegrating tablet 10 mg PO DAILY PRN ALLEGIES 01/24/22 [History Last Taken Unknown] ciprofloxacin HCl 500 mg tablet (Cipro) 500 mg PO BID 01/24/22 [History Last Taken Unknown] d-mannose 500 mg capsule 1,000 mg PO DAILY 01/24/22 [History Last Taken Unknown] multivitamin 1 tab PO DAILY 01/24/22 [History Last Taken Unknown] vitamin B complex 1 tab PO DAILY 01/24/22 [History Last Taken Unknown] Allergy/AdvReac Type Severity Reaction Status Date / Time tramadol Allergy Intermediate Itching Verified 01/25/22 08:06 Family History Father Asthma Surgical History (Updated 01/24/22 @ 08:50 by Shameka Rodríguez) H/O bilateral hip replacements (~2010) H/O colposcopy with cervical biopsy H/O LEEP History of lumbar surgery History of tonsillectomy Hx of surgical procedure S/P lumbar microdiscectomy Tubal ligation status Social History adopted: No household members: spouse housing: house number of children: 1 current occupational status: employed current occupation: [employer] current occupational exposures/hazards: Yes pets and animals: Yes history of recent travel: No Smoking Status: Former smoker second hand exposure: Yes alcohol intake: current alcohol intake frequency: a few times a week substance use type: does not use seatbelt use: always do you feel safe at home: Yes 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 [employer] Vital Signs Vital Signs Vital Signs: 01/25/22 08:16 01/25/22 08:16 Temperature 97.6 F L Temperature Source Temporal Pulse Rate 72 Respiratory Rate 16 Respiratory Pattern Normal Blood Pressure 135/86 H Blood Pressure Mean 102 Blood Pressure Source Monitor Blood Pressure Position Semi-Fowlers Blood Pressure Location Left Arm Pulse Ox 95 Oxygen Delivery Method Room Air Weight Weight: 268 lb 15.423 oz Body Mass Index (BMI) 39.6 Physical Exam Const alert General Appearance: cooperative Orientation / Consciousness: oriented to person HEENT hearing grossly normal bilaterally Head and Scalp: normal to inspection Face and Sinus: face symmetric Nose: external nose normal Mouth: oral and palatal mucosa normal Eyes conjunctivae normal General Eye: normal appearance of both eyes Neck full ROM General: normal visual inspection Lymph Lymphatic: no lymphadenopathy noted Chest inspection of chest normal and palpation of chest normal Chest: symmetrical chest wall rise Resp normal respiratory effort Effort and Inspection: able to speak in complete sentences Cardio regular rate GI non-distended Percussion: normal to percussion Rectal Exam: deferred Neuro Speech: speech normal Gait (Neuro): normal gait Assessment & Plan Assessment/Plan (1) Encounter for screening for malignant neoplasm of colon: PLAN: She was explained alternatives, risk, benefits include upstanding bleeding, infection, sepsis, perforation, need for emergent surgery and . She will have an ASA of 1.
--- NOTE | 2022-01-25 09:00 | COLBX_PTH ---
PATIENT: JOSSE WARNER LOC: EN U#:[id number] AGE/SX: 51/F ROOM: RE01/25/[address]: Dr. Khurram Rayo DO : 1970 BED: DIS: 01/25/2022 SPEC #: [id number] RECD: 01/25/22 10:55 STATUS: OLIVER REValarie #: [id number] JONATHAN: 01/25/22 09:[address]: Khurram Rayo DEPT: SURGICAL PATHOLOGY RECD BY: Radha Shah ENTERED: 01/25/22 11:40 SP TYPE: COLON BX OTHR DR: Dr. Jeanne Quevedo DO Tissues: Sigmoid colon biopsy Procedures: Surgery Specimen Level IV HEADER OPERATION: Colonoscopy, open access (MAC) PRE-OP DIAGNOSIS: Encounter for screening for malignant neoplasm of the colon TISSUE SUBMITTED: Sigmoid colon biopsy MICROSCOPIC DIAGNOSIS Sigmoid colon, biopsy: Fragments of tubular adenoma. /SJ: 01/26/22 MICROSCOPIC DESCRIPTION Slides are reviewed. GROSS DESCRIPTION Received is one container labeled with the patient name and designated sigmoid polyp. The specimen consists of two irregular fragments of light murrell soft tissue that in aggregate measure 0.6 x 0.3 x 0.1 cm. The specimen is totally submitted in one cassette. /SJ:cc 01/25/2022 TC:1 CPT:93652
--- NOTE | 2022-01-25 09:29 | OP.COLON_ITS ---
Patient Name: Anny Hernandes Procedure Date: 01/25/2022 8:54 AM Date of : 1970 Age: 51 Procedure: Colonoscopy Indications: Screening for colorectal malignant neoplasm Providers: Khurram Rayo DO Medicines: Monitored Anesthesia Care Patient Profile: This is a 51 year old female. Refer to note in patient chart for documentation of history and physical. Last Colonoscopy: none. The patient's first colonoscopy is today. Complications: No immediate complications. Procedure: Pre-Anesthesia Assessment: - Prior to the procedure, a History and Physical was performed, and patient medications and allergies were reviewed. The risks and benefits of the procedure and the sedation options and risks were discussed with the patient. All questions were answered and informed consent was obtained. Patient identification and proposed procedure were verified by the physician in the pre-procedure area. Mental Status Examination: alert and oriented. Airway Examination: normal oropharyngeal airway and neck mobility. Respiratory Examination: clear to auscultation. CV Examination: normal. Prophylactic Antibiotics: The patient does not require prophylactic antibiotics. Prior Anticoagulants: The patient has taken no previous anticoagulant or antiplatelet agents. ASA Grade Assessment: II - A patient with mild systemic disease. After reviewing the risks and benefits, the patient was deemed in satisfactory condition to undergo the procedure. The anesthesia plan was to use monitored anesthesia care (MAC). Immediately prior to administration of medications, the patient was re-assessed for adequacy to receive sedatives. The heart rate, respiratory rate, oxygen saturations, blood pressure, adequacy of pulmonary ventilation, and response to care were monitored throughout the procedure. The physical status of the patient was re-assessed after the procedure. After I obtained informed consent, the scope was passed under direct vision. Throughout the procedure, the patient's blood pressure, pulse, and oxygen saturations were monitored continuously. The pediatric colonoscope was introduced through the anus and advanced to the cecum, identified by appendiceal orifice and ileocecal valve. The colonoscopy was performed without difficulty. The patient tolerated the procedure well. The quality of the bowel preparation was good. Scope In: 9:03:54 AM Scope Withdrawal Time 0 hours 10 minutes 37 seconds Scope Out: 9:18:24 AM Total Procedure Duration Time 0 hours 14 minutes 30 seconds Findings: The perianal and digital rectal examinations were normal. A 5 mm polyp was found in the sigmoid colon. The polyp was sessile. The polyp was removed with a cold biopsy forceps. Resection and retrieval were complete. Verification of patient identification for the specimen was done. Estimated blood loss was minimal. Internal hemorrhoids were found during retroflexion. The hemorrhoids were Grade I (internal hemorrhoids that do not prolapse). The exam was otherwise without abnormality on direct and retroflexion views. Impression: - One 5 mm polyp in the sigmoid colon, removed with a cold biopsy forceps. Resected and retrieved. - Internal hemorrhoids. - The examination was otherwise normal on direct and retroflexion views. Recommendation: - Discharge patient to home. - Resume previous diet. - Continue present medications. - Await pathology results. - Repeat colonoscopy in 5 years for surveillance. Procedure Code(s): --- Professional --- 47248, Colonoscopy, flexible; with biopsy, single or multiple CPT copyright 2017 [employer]. All rights reserved. The codes documented in this report are preliminary and upon certified phlebotomist review may be revised to meet current compliance requirements. Khurram Rayo DO 01/25/2022 9:28:42 AM This report has been signed electronically. Number of Addenda: 0 Note Initiated On: 01/25/2022 8:54 AM
--- NOTE | 2022-01-25 09:29 | OP.CCLET_ITS ---
01/25/2022 Jeanne Quevedo [address] [place] [address] Re : Colonoscopy procedure for Anny Hernandes Dear Dr. Quevedo This procedure was performed on January. My impressions and recommendations are as follows: Impressions : - One 5 mm polyp in the sigmoid colon, removed with a cold biopsy forceps. Resected and retrieved. - Internal hemorrhoids. - The examination was otherwise normal on direct and retroflexion views. Recommendations : - Discharge patient to home. - Resume previous diet. - Continue present medications. - Await pathology results. - Repeat colonoscopy in 5 years for surveillance. My findings are described in the full procedure note, which is enclosed. If I can be of further assistance, please feel free to contact me at . Sincerely, Khurram Rayo, 01/25/2022 9:28:42 AM This report has been signed electronically.
== END 2022-01-25 10:03 | disposition home or self-care (01) ==
LOC: EN 07:45 → AC 07:46
PROVIDERS: PCP Family Medicine; Referring Provider Family Medicine; Visit Provider Internal Medicine Gastroenterology
PROC: 0DJD8ZZ Inspection of Lower Intestinal Tract, Via Natural or Artificial Opening Endoscopic (ICD-10-PCS; CPT 45378; principal; 2022-01-25 08:55)
DX: Z12.11 Encounter for screening for malignant neoplasm of colon (principal); K64.0 First degree hemorrhoids; I10 Essential (primary) hypertension; E78.00 Pure hypercholesterolemia, unspecified; Z87.891 Personal history of nicotine dependence; D12.5 Benign neoplasm of sigmoid colon
CPT/HCPCS: 45380; 88305; J7120; J2405

== ENCOUNTER → 2022-02-26 | Outpatient (CLI) | payer OTHER, SELFPAY | END | disposition home or self-care (01) | PROVIDERS: PCP Family Medicine; Visit Provider Nurse Practitioner Women's Health | DX: R35.0 Frequency of micturition (principal) | CPT/HCPCS: 87086; 87088 ==

== ENCOUNTER → 2022-04-30 | Outpatient (CLI) | payer OTHER, SELFPAY | END | disposition home or self-care (01) | LOC: LAB.FUTURE 10:26 | PROVIDERS: PCP Family Medicine; Visit Provider Physician Assistant Surgical | DX: N39.0 Urinary tract infection, site not specified (principal) ==

== ENCOUNTER → 2022-06-21 | Outpatient (CLI) | payer OTHER, SELFPAY ==
--- NOTE | 2022-06-21 | EMB_PTH ---
PATIENT: JOSSE WARNER LOC: [facility] U#:[id number] AGE/SX: 51/F ROOM: RE06/21/[address]: ALVIN Kuo : 1970 BED: DIS: 06/21/2022 SPEC #: [id number] RECD: 06/21/22 12:12 STATUS: OLIVER REValarie #: [id number] JONATHAN: 06/21/22 00:[address]: Maame Jones NP DEPT: SURGICAL PATHOLOGY RECD BY: Albino Hooper ENTERED: 06/21/22 12:12 SP TYPE: ENDOM BX/C BASHIR DR: Dr. Jeanne Quevedo DO Tissues: Endometrium, NOS Procedures: Surgery Specimen Level IV HEADER OPERATION: Endometrial biopsy PRE-OP DIAGNOSIS: Abnormal uterine bleeding TISSUE SUBMITTED: Endometrial tissue MICROSCOPIC DIAGNOSIS Endometrial biopsy: Superficial fragments of inactive endometrial tissue. See comment. POLLO:alycia 06/22/2022 COMMENT Clinical correlation and appropriate follow up are necessary. MICROSCOPIC DESCRIPTION Slides are reviewed. GROSS DESCRIPTION Received is one container labeled with the patient's name and not further designated. The specimen consists of multiple fragments of hemorrhagic tissue mixed with mucoid tissue that in aggregate measure 2.5 x 1.5 x 0.1 cm. The specimen is totally submitted in one cassette. / SJ:alycia 06/21/2022 TC:4 CPT: 18263
== END | disposition home or self-care (01) ==
LOC: LABSPEC 11:57
PROVIDERS: PCP Family Medicine; Referring Provider Nurse Practitioner Women's Health; Visit Provider Nurse Practitioner Women's Health
DX: N93.9 Abnormal uterine and vaginal bleeding, unspecified (principal)
CPT/HCPCS: 88305

== ENCOUNTER → 2022-07-03 | Outpatient (CLI) | payer OTHER, SELFPAY ==
--- NOTE | 2022-07-03 07:49 | US_ITS ---
STUDY: ULTRASOUND OF THE FEMALE PELVIS - COMPLETE REASON FOR EXAM: Female, 51 years old. PMB LMP: Patient is postmenopausal. TECHNIQUE: Transabdominal and Transvaginal TECHNICAL QUALITY: Adequate. COMPARISON: Comparison is made with prior study dated November 17, 2018. FINDINGS: The uterus is anteverted and is tilted to the right side of the pelvis. The uterus measures 9.3 cm x 5.8 signed by 4.7 cm. Normal uterine cervix. The endometrium measures 4 mm in thickness, and is hyperechoic. There is no demonstrated endometrial mass. 2 fibroids are seen. The larger fibroid measures 3.6 x 3 cm x 3.6 cm. I.U.D. - The patient does not have an I.U.D. The right ovary is non-visualized due to overlying bowel gas. The left ovary is non-visualized due to overlying bowel gas. There is no fluid in the cul-de-sac. The pre void volume of the bladder was 342 ml. US/Pelvic w/ Transvaginal IMPRESSION: Fibroid uterus. Minimal thickening of the endometrium at 4 mm. Electronically Signed: Bentley Landa MD at 15:45 EDT ,
== END | disposition home or self-care (01) ==
LOC: US 07:46
PROVIDERS: PCP Family Medicine; Referring Provider Nurse Practitioner Women's Health; Visit Provider Nurse Practitioner Women's Health
DX: N95.0 Postmenopausal bleeding (principal)
CPT/HCPCS: 76830; 76856

== ENCOUNTER 2022-08-15 08:00 | Outpatient (RCR) | payer OTHER, SELFPAY ==
--- NOTE | 2022-07-10 09:58 | HP.PTEVAL ---
Patient's Visit Information JOSSE WARNER is a 51 year old F referred to Physical Therapy by Dr. Jeanne Quevedo DO with a diagnosis of PES PLANUS. Date of Evaluation: 07/10/22 Physical Therapist: Carl Vance PT, Cert MDT, [facility] - Visit Plan Frequency: 1 visit Plan: PROVIDE FABRICATED ORTHOTICS - Subjective This 51 y/o female presents to physical therapy with pes planus for orthotics . Patient has had arch pes planus many years . Patient has pain in feet and ankle along with knees . Patient located medial ankle and knee. Denies paresthesia/tingling. Patient symptoms worse with walking and standing which affects job and housework tasks. Patient pain described as ache. Patient has had orthotics ~ 2yeras ago. SOCAIL: . 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 GAIT: reciprocal pattern calcaneal valgus. PALPATION: unremarkable. EDEMA: absent. NEURO: intact. AROM: DF 5 degrees ,plantarflexion 60 degrees, inversion 40 degrees ,eversion 10 degrees. MMT: ankle 4/5 grossly - Goals Goal 1:: Patient to be provided with fabricated orthotics and ensure proper fitting Goal Time Frame: 1 visit - Rehabilitation Potential Physical Therapy Diagnosis: Patient has pes planus along with calcaneal valgus with arch pain thus benefit from orthotics Rehabilitation Potential: Good - Anticipated Interventions Patient/Client Instruction: Educate patient on: Condition For the Purpose of:: Other Other: ORTHOTICS Thank you for the opportunity to evaluate your patient. For Medicare and Medicare HMO plans, please review the plan of care and approve it. It will need to be FAXED BACK to us at [phone] for Medicare purposes. For Medicare only, by signing this I certify the plan of care. Please let me know if there are questions or concerns regarding this plan of care. Physician Signature: Date:
--- NOTE | 2022-08-15 08:21 | HP.PTDCSUM_ITS ---
It has been my pleasure to treat JOSSE WARNER referred by Dr. Jeanne Quevedo DO, with the diagnosis of PES PLANUS for a total of 2 visit(s). Discharge Date: 08/15/22 Please see the following information for a summary of their discharge status. Subjective: No problems Bilateral Foot Pain Intensity (Out of 10): 0 % Improvement: 100 Objective/Function: PROVIDED ORTHOTICS Goal 1:: Patient to be provided with fabricated orthotics and ensure proper fi tting Goal Progress: Goal Met Plan: D/C Discharge Comments: PROVIDED ORTHOTICS If there are questions or concerns regarding this patient's physical therapy, please feel free to call me at [phone]. Thank you for the referral of this patient. Sincerely, Carl Vance PT, Cert MDT, OCS
== END 2022-08-15 08:38 | disposition home or self-care (01) ==
LOC: PT 08:00
PROVIDERS: PCP Family Medicine; Referring Provider Family Medicine; Visit Provider Family Medicine
DX: M21.41 Flat foot [pes planus] (acquired), right foot (principal); M21.42 Flat foot [pes planus] (acquired), left foot
CPT/HCPCS: 97161; 97760; 97763

== ENCOUNTER → 2022-10-15 | Outpatient (CLI) | payer OTHER, SELFPAY ==
--- NOTE | 2022-10-15 07:17 | BI_ITS ---
MAMMOGRAPHY - BILATERAL SCREENING REASON FOR EXAM: Female, 52 years old. Routine annual screening examination. PERTINENT HISTORY: Non-contributory. TECHNIQUE: Digital bilateral breast jameson (3D mammographic acquisition) in the CC and MLO projections. 2-D mediolateral oblique (MLO) and craniocaudad (CC) views of both breasts were obtained. CAD: Full Field Digital Mammography with Computer Added Detection was performed. COMPARISON: Comparison is made with prior study October 12, 2021 and October 04, 2020. FINDINGS: Breast Composition: There are scattered areas of fibroglandular density. New faint 5.7 mm well-defined nodule in the central aspect of the left breast as seen on the craniocaudad view. The patient will be recalled for additional views of the left breast and possible ultrasound. Stable 9 mm well-defined nodule in the deep central portion of the left breast. No other significant abnormalities are identified. BI/SCRN MAMM (CAD)W/JAMESON BILAT IMPRESSION: Faint 5.7 mm well-defined nodule seen in the central portion of the left breast on the craniocaudad view. The patient will be recalled for additional views of the left breast including compression spot views and 90 degree lateral view. Possible ultrasound correlation as well. ASSESSMENT CATEGORY: BIRADS Category 0: Incomplete. Need additional imaging evaluation. A letter regarding these results will be sent to the patient by the facility within 30 days. Approximately 10% of breast cancers are not detected by mammography. A normal mammogram should not delay biopsy of a clinically suspicious abnormality. [id number] Electronically Signed: Bentley Landa MD at 9:09 EDT ,
== END | disposition home or self-care (01) ==
LOC: OPBI 07:15
PROVIDERS: PCP Family Medicine; Referring Provider Family Medicine; Visit Provider Family Medicine
DX: Z12.31 Encounter for screening mammogram for malignant neoplasm of breast (principal)
CPT/HCPCS: 77063; 77067

== ENCOUNTER → 2022-10-22 | Outpatient (CLI) | payer OTHER, SELFPAY ==
--- NOTE | 2022-10-22 09:21 | US_ITS ---
STUDY: ULTRASOUND BREAST - LEFT REASON FOR EXAM: Female, 52 years old. Abnormal screening mammogram. TECHNIQUE: Axial and longitudinal images of the LEFT breast were performed with a high resolution ultrasound transducer. # OF IMAGES: 32 COMPARISON: Comparison is made with prior mammogram dated October 22, 2022 and October 15, 2022. FINDINGS: LEFT Breast: The mid and inferior aspect of the left breast was examined by ultrasound. There is a heterogeneously fibroglandular tissue. No sonographic abnormality is seen. Routine mammographic follow-up is recommended. US/Breast Limited Unilateral IMPRESSION: No sonographic abnormalities seen. Routine mammographic follow-up is recommended. ASSESSMENT CATEGORY: BIRADS Category 2: Benign. A letter regarding these results will be sent to the patient by the facility within 30 days. Electronically Signed: Bentley Landa MD at 12:32 EDT ,
--- NOTE | 2022-10-22 09:21 | BI_ITS ---
MAMMOGRAPHY - UNILATERAL DIAGNOSTIC: LEFT BREAST REASON FOR EXAM: Female, 52 years old. Abnormal screening mammogram. PERTINENT HISTORY: Non-contributory. TECHNIQUE: Compression spot views and 90 degree lateral view of the left breast were obtained. CAD: Full Field Digital Mammography with Computer Added Detection was performed. COMPARISON: Comparison is made with prior study October 15, 2022. FINDINGS: Breast Composition: There are scattered areas of fibroglandular density. The previously seen 5.7 mm well-defined nodule in the central aspect of the left breast is visualized. Correlation with ultrasound is recommended. No other significant abnormalities are identified. BI/DIAG MAMM W/CAD, UNILAT IMPRESSION: Persistent 5.7 mm well-defined nodule in the central deep aspect of the left breast. Correlation with ultrasound is recommended. ASSESSMENT CATEGORY: BIRADS Category 0: Incomplete. Need additional imaging evaluation. A letter regarding these results will be sent to the patient by the facility within 30 days. Approximately 10% of breast cancers are not detected by mammography. A normal mammogram should not delay biopsy of a clinically suspicious abnormality. Electronically Signed: Bentley Landa MD at 10:51 EDT ,
== END | disposition home or self-care (01) ==
LOC: OPBI 09:19
PROVIDERS: PCP Family Medicine; Referring Provider Family Medicine; Visit Provider Family Medicine
DX: N63.42 Unspecified lump in left breast, subareolar (principal)
CPT/HCPCS: 76642; 77065

== ENCOUNTER → 2022-11-07 | Outpatient (CLI) | payer OTHER, SELFPAY ==
[2022-11-07 07:30] LABS: Absolute Lymphocyte Count 3.52 X10^3/uL (0.83-4.51); Absolute Neutrophil Count 6.7 X10^3/uL (2.0-7.7); Basophil# 0.06 X10^3/uL; Basophil% 0.5 % (0-1); Eosinophil# 0.21 X10^3/uL; Eosinophils% 1.9 % (0-5); Hematocrit 41.5 % (37-47); Hemoglobin 13.8 g/dL (12.0-15.0); Lymphocyte # 3.52 X10^3/ul (0.83-4.51); Lymphocyte % 31.3 % (19-41); Mean Corp Hgb Conc 33.3 g/dL (32-36); Mean Corpuscular Hgb 30.4 pg (27.0-32.0); Mean Corpuscular Volume 91.4 fL (81-99); Monocyte# 0.75 X10^3/uL; Monocyte% 6.7 % (0-10); NRBC Flagged by Analyzer 0 % (0-5); Neutrophil # 6.66 X10^3/uL (2.7-7.7); Neutrophil % 59.2 % (47-70); Platelet Count 273 K/mm3 (150-450); RBC Distribution Width CV 11.8 % (11.6-14.6); RBC Distribution Width SD 39.1 fl (35.1-43.9); Red Blood Count 4.54 M/mm3 (4.2-5.4); White Blood Count 11.3 K/mm3 (4.4-11.0)
[2022-11-07 08:04] LABS: Estradiol 12.1 pg/mL
== END | disposition home or self-care (01) ==
PROVIDERS: PCP Family Medicine; Referring Provider Obstetrics & Gynecology; Visit Provider Obstetrics & Gynecology
DX: N95.0 Postmenopausal bleeding (principal); Z13.29 Encounter for screening for other suspected endocrine disorder
CPT/HCPCS: 36415; 82670; 83001; 84443; 85025

== ENCOUNTER → 2022-11-19 | Outpatient (CLI) | payer OTHER, SELFPAY ==
--- NOTE | 2022-11-19 10:21 | US_ITS ---
STUDY: ULTRASOUND OF THE FEMALE PELVIS - COMPLETE REASON FOR EXAM: Female, 52 years old. Postmenopausal bleeding LMP: Patient is postmenopausal. TECHNIQUE: Transabdominal and Transvaginal TECHNICAL QUALITY: Adequate. COMPARISON: Comparison is made with prior examination July 03, 2022. FINDINGS: The uterus is anteverted and is in a midline position. The uterus measures 10 cm x 5.8 cm x 4.3 cm. Normal uterine cervix. The endometrium measures 3.9 mm in thickness, and is hyperechoic. There is no demonstrated endometrial mass. 2 fibroids are seen. The larger fibroid is in the posterior fundal aspect of the uterus and measures 4.7 cm x 3.87 x 4.1 cm. I.U.D. - The patient does not have an I.U.D. The right ovary is non-visualized. The left ovary is non-visualized. There is no fluid in the cul-de-sac. The pre void volume of the bladder was 180 ml. US/Pelvic (Non ) IMPRESSION: Stable fibroid uterus. Mild thickening of the endometrium for a postmenopausal woman at 3.9 mm. Electronically Signed: Bentley Landa MD at 9:36 EDT ,
== END | disposition home or self-care (01) ==
LOC: US 10:20
PROVIDERS: PCP Family Medicine; Referring Provider Obstetrics & Gynecology; Visit Provider Obstetrics & Gynecology
DX: N95.0 Postmenopausal bleeding (principal)
CPT/HCPCS: 76830; 76856

== ENCOUNTER 2023-02-08 06:34 | Day surgery (SDC) | payer OTHER, SELFPAY ==
--- NOTE | 2023-02-04 07:06 | EKG12_ITS ---
Test Reason : PREOP Blood Pressure : / mmHG Vent. Rate : 067 BPM Atrial Rate : 067 BPM P-R Int : 186 ms QRS Dur : 098 ms QT Int : 394 ms P-R-T Axes : 087 013 022 degrees QTc Int : 416 ms Normal sinus rhythm Normal ECG Confirmed by OSEI BUSTAMANTE, KENDY ([id number]), editor magazine RIRI RUSHING ([id number]) on 02/04/2023 12:16:04 PM Referred By: Billie Pompa Confirmed By:KENDY FRANZ MD
[2023-02-04 07:58] LABS: Hematocrit 44.1 % (37-47); Mean Corp Hgb Conc 31.7 g/dL (32-36); Mean Corpuscular Hgb 29.4 pg (27.0-32.0); Mean Corpuscular Volume 92.6 fL (81-99); Mean Platelet Vol. 9.7 fl (6.2-12.0); Platelet Count 304 K/mm3 (150-450); RBC Distribution Width SD 41.1 fl (35.1-43.9); Red Blood Count 4.76 M/mm3 (4.2-5.4); White Blood Count 6.1 K/mm3 (4.4-11.0)
[2023-02-04 08:20] LABS: Magnesium 2.3 mg/dL (1.6-2.6)
[2023-02-04 08:27] LABS: ALB/GLOB Ratio 1.2 RATIO (0.9-2.4); AST(SGOT) 26 U/L (15-37); Alanine Aminotransfer ALT/SGPT 47 U/L (13-56); Alkaline Phosphatase 76 U/L (45-117); Anion Gap 3 (5-15); BUN 19 mg/dL (7-18); Calcium,Total 9.4 mg/dL (8.5-10.1); Chloride 105 mmol/L (98-107); Creatinine, Serum 0.86 mg/dL (0.55-1.02); EST Glomerular Filtration Rate 73 mL/min (>60); Est Glom Filt Rate - Afr Amer 88 mL/min (>60); Globulin 3.2 g/dL (2.2-4.2); Glucose 112 mg/dL (74-106); Potassium 4.6 mmol/L (3.5-5.1); Protein, Total 7.2 g/dL (6.4-8.2); Sodium Level 138 mmol/L (136-145)
[2023-02-08] VITALS (10 sets, daily range): BP systolic 114–134; BP diastolic 57–89; PULSE 60–77; RESP 14–18; TEMP 36.1–36.8; O2SAT 94–99; BMI 36.3
--- NOTE | 2023-02-08 02:40 | HP.PCM_ITS ---
History and Physical Date of Admission: 02/08/23 Vital Signs 12/10/2309:06 01/24/2314:54 01/24/2314:56 Height 5 ft 9 in 5 ft 9 in 5 ft 9 in Weight: 252 lb 6 oz BMI 37.3 BP 140/90 H Intake Visit Reasons: [facility] Photo Cartographer Required: No Is patient in pain?: No Allergies tramadol Allergy (Intermediate, Verified 01/24/23 14:55) Itching Medications buspirone 10 mg tablet 10 mg PO BID 09/13/17 [History Confirmed 01/24/23] fluoxetine 40 mg capsule 40 mg PO QDAY 09/13/17 [History Confirmed 01/24/23] omeprazole 40 mg capsule,delayed release 40 mg PO QDAY 09/13/17 [History Confirmed 01/24/23] tjnuwxo-dbxaelswlnlqj-fhaltfok 250 mg-250 mg-65 mg tablet (Excedrin Migraine) 1 tab PO ONCE PRN MIGRAINES 04/27/19 [History Confirmed 01/24/23] atenolol 50 mg tablet 75 mg PO DAILY 04/27/19 [History Confirmed 01/24/23] ibuprofen 400 mg tablet 400 mg PO Q8H PRN Pain 04/27/19 [History Confirmed 01/24/23] docusate sodium 100 mg capsule (Colace) 100 mg PO DAILY 10/30/21 [History Confirmed 01/24/23] pravastatin 20 mg tablet 40 mg PO DAILY 10/30/21 [History Confirmed 01/24/23] Lactobacillus acidophilus 10 billion cell capsule (Probiotic) 10,000 mmu cells PO DAILY 01/24/22 [History Confirmed 01/24/23] cetirizine 10 mg disintegrating tablet 10 mg PO DAILY PRN ALLEGIES 01/24/22 [History Confirmed 01/24/23] d-mannose 500 mg capsule 1,000 mg PO DAILY 01/24/22 [History Confirmed 01/24/23] multivitamin 1 tab PO DAILY 01/24/22 [History Confirmed 01/24/23] ciprofloxacin HCl 500 mg tablet (Cipro) 500 mg PO BID PRN with procedures 02/26/22 [History Confirmed 01/24/23] estradiol 0.01% (0.1 mg/gram) vaginal cream See Rx Instructions vaginal .COMPLEX #42.5 grams 06/21/22 [Rx Confirmed 01/24/23] phentermine 37.5 mg capsule 37.5 mg PO DAILY 12/10/22 [History Confirmed 01/24/23] Post menopausal: No Patient : No : No PFSH Medical History Anemia Anxiety Arthritis Asthma Back pain Bilateral headaches Former smoker Gastric reflux GERD (gastroesophageal reflux disease) High blood cholesterol History of steroid therapy HTN (hypertension) Hx of abnormal cervical Pap smear Hyperlipidemia Hypoglycemia Insomnia Leg cramps Migraine headache Mood swings Neuropathy Osteoarthritis Post-menopausal Seasonal allergies Wears glasses Surgical History H/O bilateral hip replacements (~2010) H/O colposcopy with cervical biopsy H/O LEEP History of lumbar surgery History of tonsillectomy Hx of surgical procedure S/P lumbar microdiscectomy Tubal ligation status Family History Father Asthma Social History adopted: No household members: spouse housing: house number of children: 1 current occupational status: employed current occupation: [employer] current occupational exposures/hazards: Yes pets and animals: Yes history of recent travel: No Smoking Status: Former smoker second hand exposure: Yes alcohol intake: current alcohol intake frequency: a few times a week substance use type: does not use seatbelt use: always do you feel safe at home: Yes additional social history: - 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 US- 11.4 x 8.0 x 6.2 cm in maximal craniocaudal dimension. There are multiple fibroids with the largest measuring 4.3 x 3.6 x 4.6 cm. Smaller fibroids measure 1.7 cm. Female Reproductive History Menopausal Symptoms: No hot flashes, No difficulty concentrating and No change in libido History 1 Elective abortions Hx Para 1 Spontaneous abortions Hx # Term Pregnancies Ectopic pregnancies Hx # Pregnancies Multiple births # of living children 1 Past Pregnancies Del. Date Name GA/Weeks Outcome Route Bth Weight Gen Labor Lgth Anesthesia Del Locatn Provider FOB Unknown 09/13/1993- Luis Miguel live - full ter m Male [facility] ROS Const Constitutional: Reports as per HPI and weight loss; Denies fatigue, increased appetite, poor appetite or weight gain ENT ENT: Reports system reviewed and no additional complaints, except as documented Cardio Card: Denies chest pain Resp Resp: Denies cough or dyspnea GI GI: Reports as per HPI; Denies abdominal pain, bloating, constipation, nausea or vomiting : Reports as per HPI, urinary incontinence and other; Denies difficulty voiding, dysuria, hematuria, hot flashes, nipple discharge, pelvic pain, prolapse symptoms, urinary frequency, urinary urgency, vaginal discharge, vaginal dryness, vaginal odor or vaginal pruritus Musc Musc: Denies arthralgias, back pain or muscle weakness Skin Skin/Breast: Denies changing lesions, breast mass, breast pain, breast skin c hanges or nipple discharge Neuro Neuro: Reports system reviewed and no additional complaints, except as documented Psych Psych: Denies anxiety, change in libido, depression or difficulty concentrating Endo Endo: Denies cold intolerance, excessive sweating, heat intolerance or polydipsia Raji/Lymph Hematologic/Lymphatic: Denies easy bleeding, Denies easy bruising and Denies lymphadenopathy Exam Const General: cooperative, healthy appearing, comfortable and no acute distress Orientation: alert [facility] Head: normal to inspection and normocephalic Ears: hearing grossly normal bilaterally and external ears normal Nose: external nose normal and nares normal Face and sinus: normal facial exam Neck Neck: normal visual inspection and no lymphadenopathy Thyroid: thyroid normal Chest Chest palpation & inspection: normal inspection of the chest Resp Effort & Inspection: normal respiratory effort Auscultation: clear to auscultation bilaterally Cardio Rate: regular rate Rhythm: regular rhythm Heart Sounds: S1 normal and S2 normal GI Inspection: normal to inspection and non-distended Palpation: soft and no hepatosplenomegaly Musc Other: gross motor intact no deficits, full bilateral strength Skin General: no rashes or lesions noted Neuro General: patient alert, patient awake, moves all extremities and no focal motor deficits Motor: muscle tone normal throughout Extrem General: normal to inspection and no pedal edema Psych Appearance: grossly normal Mental Status: mental status grossly normal Affect: normal affect Speech and Movement: speech and movement normal Coding Level of Care Code No Charge Diagnoses Intramural uterine fibroid D25.1 Postmenopausal bleeding N95.0 Assessment and Plan Assessment and Plan (1) Intramural uterine fibroid: Status: Chronic Comment: likely cause of PMB. plan LAVHBS (2) Postmenopausal bleeding: Status: Acute Comment: nl emb. likely secondary to fibroids. proceed with LAVHBS Plan After discussing the patient's diagnosis and treatment plan options, patient wishes to proceed with surgical management. I have discussed with the patient the risks, benefits, and alternatives of the procedure which include but are not limited to risks of anesthesia, bleeding, infection, possible damage to bowel, bladder, or surrounding vasculature which could lead to additional surgery to evaluate any complications. Patient agrees to procedure and wishes to proceed. ACOG/uptodate references given for additional information regarding procedure.
[2023-02-08] MEDS: Lactated Ringers 1,000 ML 40 ML IV ×2 (07:09→12:11)
[2023-02-08] MEDS: Magnesium 1 GM over 15 mins IV (07:10)
[2023-02-08] MEDS: Enoxaparin 40 MG/0.4 ML Syringe SC (07:12)
[2023-02-08] MEDS: Scopolamine 1mg/72hr Patch 1 PATCH TD (07:13)
[2023-02-08] MEDS: dexAMETHasone 4 MG/ML Vial 8 MG IV (07:15)
[2023-02-08] MEDS: Acetaminophen 500 MG Tablet 1000 MG PO ×2 (07:17→13:41)
[2023-02-08] MEDS: Gabapentin 600 MG Tablet PO (07:17)
[2023-02-08] MEDS: Celecoxib 200 MG Capsule 400 MG PO (07:17)
--- NOTE | 2023-02-08 08:30 | HYST_PTH ---
PATIENT: JOSSE WARNER LOC: [facility] [place] U#:[id number] AGE/SX: 52/F ROOM: RE02/08/[address]: Dr. Billie Pompa MD : 1970 BED: DIS: 02/08/2023 SPEC #: [id number] RECD: 02/08/23 12:49 STATUS: OLIVER REQ #: [id number] JONATHAN: 02/08/23 08:[address]: Billie Pompa DEPT: SURGICAL PATHOLOGY RECD BY: Radha Shah ENTERED: 02/08/23 13:25 SP TYPE: HYSTERECT OTHR DR: MD Dr. Jeanne Oakes DO Tissues: Uterus, NOS Procedures: Surgery Specimen Level V HEADER OPERATION: Hysterectomy, LAVH, bilateral salpingectomy PRE-OP DIAGNOSIS: Intramural uterine fibroid, postmenopausal bleeding TISSUE SUBMITTED: Uterus, cervix, bilateral fallopian tubes MICROSCOPIC DIAGNOSIS Uterus, hysterectomy: Cervix - Nabothian cysts and minimal chronic inflammation. Endometrium - weakly proliferative to inactive endometrium. Myometrium - leiomyomas and adenomyosis. AM:alycia 02/11/2023 MICROSCOPIC DESCRIPTION Slides are reviewed. GROSS DESCRIPTION Received in fixative is one container labeled with the patient's name and designated uterus. The specimen consists of a uterus with attached cervix and attached right and left fallopian tubes. The uterus with cervix measures 10.0 x 6.0 x 5.7 cm and weighs 128 gm. The ectocervix is unremarkable. The cervical os is oval in contour. The endocervical canal measures 3.3 cm in length and is grossly unremarkable. The triangular endometrial cavity measures 4.0 x 3.0 cm. The velvety, reddish-murrell endometrium measures up to 0.2 cm in thickness. The myometrium measures 2.2 cm in greatest thickness and is distorted by three rubbery nodules ranging in size from 1.5 to 4.5 cm and grossly resembling leiomyomas. The right and left fallopian tubes are similar in appearance with average lengths of 5.5 cm and average diameter of 0.5 cm. [employer] Worker sections are submitted as follows: 1 - anterior cervix, 2 - posterior cervix, 3 & 4 - anterior uterine wall, 5 & 6 - posterior myometrial wall, 7 - largest myometrial mass, 8 - second and third myometrial masses, 9 - right fallopian tube, 10 - left fallopian tube. / AM:alycia 02/08/2023 TC:1 CPT: 14656
[2023-02-08 08:45] LABS: Bedside Glucose 90 mg/dL (74-106)
[2023-02-08] MEDS: Cefazolin 2 GM in 0.9% Normal Saline (100mL Bag) 100 ML IV (08:51)
--- NOTE | 2023-02-08 08:53 | PCM.OPRPT ---
Problems Associated Problem List Diagnoses (1) Intramural uterine fibroid: (2) Postmenopausal bleeding: (3) Stress incontinence: Report of Operation Date of Procedure: 02/08/23 Pre-Operative Diagnosis: see A/P Post-Operative Diagnosis: same Surgery/Procedure Performed:: LAVHBS Description of Surgical Findings:: enlarged uterus multiple fibroids Surgeon: Billie Pompa mri special procedures technologist: Hunter Molina Type of Anesthesia: General Specimen's removed: uterus, tubes Drains: lopez Estimated Blood Loss (mL): 150 Fluids Replaced: crystalloid Description of Procedure: Patient received preoperative antibiotics and SCDs were on preoperatively. Patient was taken back to the operating room and placed in the dorsal lithotomy position. General anesthesia was induced and patient was prepped and draped in normal sterile fashion. Uterine manipulator was placed inside the uterus and Lopez catheter placed in the bladder. The umbilicus was grasped with towel clamps and an intraumbilical incision was made after injecting with quarter percent Marcaine and a Veress needle entered into the abdomen confirmed to be intra-abdominal with a low opening pressure. Abdomen was insufflated with CO2 gas and the Veress needle removed and the 5 mm trocar was placed under direct visualization without complication. Right and left lower quadrants were transilluminated and injected with quarter percent Marcaine and 5 mm ports placed under direct visualization. Pelvis was well visualized see operative findings for additional information. Bilateral fallopian tubes were identified and transected with the LigaSure device across the mesosalpinx to the level of the utero-ovarian ligament which was also transected with the LigaSure device. The broad ligament was opened up by transecting the round ligament bilaterally and skeletonizing the uterine vessels bilaterally and creating a bladder flap using the LigaSure device. The uterine arteries were transected bilaterally with good visualization of the bladder and the ureters were seen to be inferior lateral to the operative area. Attention was then paid to the vaginal portion of the procedure and the cervix was grasped with Lg clamps and circumferentially injected with dilute vasopressin. A circumferential incision was made and the vaginal mucosa was mobilized off posteriorly and the cul-de-sac entered into sharply and a longneck speculum placed. The anterior cul-de-sac was then identified and entered into sharply. The uterosacral ligaments were clamped cut and suture ligated with 0 Monocryl bilaterally followed by the cardinal ligaments which were clamped cut and suture ligated bilaterally with 0 Monocryl. The uterus serially descended and was removed without difficulty. Pelvic sidewall pedicles were checked and noted to have excellent hemostasis. The vaginal mucosa was reapproximated incorporating the posterior peritoneum. This was reapproximated using 0 Vicryl adjwee-jr-evwve sutures. Excellent hemostasis was noted. attention paid to the abdominal portion of the procedure again. The pelvis and cul-de-sac were well visualized and no significant active bleeding noted but some raw areas were seen on the peritoneum and therefore Jenny was applied. Pressure was taken down and the areas visualized and noted of excellent hemostasis. All ports were removed under direct visualization without complication and the abdomen was desufflated of air. The instruments were removed from the abdomen and the vaginal sweep was negative. Port sites on the abdomen were closed with 4-0 Monocryl interrupted sutures and Steri's and windows were applied. Dr Edwards then performed her portion of the procedure. Grafts/Implants Used: none Procedure Start Time: 08:41 Procedure Stop Time: 11:47 Complications none Admit VTE Documentation VTE Present on Admission: No VTE Mechan Device Prophylaxis: SCD's VTE Pharm Prophylaxis ordered?: Yes Procedures Urinary/Genital 52xxx-59xxx: [id number] LAVH+BS/O <250gr Uterus
[2023-02-08] MEDS: Vasopressin 20 UNITS/ML Vial (09:25)
--- NOTE | 2023-02-08 10:42 | DCINST_ITS ---
Discharge Instructions Diet Discharge Diet: No restrictions Activity Discharge Activity: May Shower May resume sexual activity in: 6-8 weeks Lifting Restrictions: 5 pounds for 4 weeks Additional Activity Instructions:: No strenuous activity, no exercise, no swimming, hot tubs or tub bathing Dressing / Incision Call your doctor if your incision/area has: Continuous Slow Oozing, Sudden Increased Bleeding, Increased Pain/ Swelling, Increased Redness, Foul Smelling Discharge and Swelling at the incision site Call your doctor if you observe: Fever of 101 or Higher, Inability to urinate and Inability to have a bowel movement Follow Up Care Please Follow Up With: Andreia Edwards MD When: The office will call her to make arrangements for follow-up Test Results: Test results from this visit will be discussed in further detail at your follow- up appointment, if applicable. Discharge Plan Admission Attending Provider: Billie Pompa Primary Care Provider: Jeanne Quevedo Consulting Providers: Andreia Edwards Discharge Orders/Prescriptions Prescriptions: New oxycodone-acetaminophen [Percocet] 5-325 mg tablet 1 tab PO Q8H PRN (Reason: pain) 5 Days Qty: 15 0RF cephalexin [cephalexin] 500 mg capsule 500 mg PO Q12 3 Days Qty: 6 0RF Continued omeprazole 40 mg capsule,delayed release(DR/EC) 40 mg PO QDAY buspirone 10 mg tablet 10 mg PO BID fluoxetine 40 mg capsule 40 mg PO QDAY atenolol 50 mg tablet 75 mg PO DAILY Excedrin Migraine 250-250-65 mg tablet 1 tab PO ONCE PRN (Reason: MIGRAINES) pravastatin 20 mg tablet 20 mg PO DAILY docusate sodium [Colace] 100 mg capsule 100 mg PO BID phentermine 37.5 mg capsule 37.5 mg PO DAILY Rx Instructions: must administer 30 minutes before or 1-2 hours after breakfast multivitamin Tablet 1 tab PO DAILY cetirizine 10 mg Tablet,Disintegrating 10 mg PO DAILY PRN (Reason: ALLEGIES) Probiotic 10 billion cell Capsule 10,000 mmu cells PO QHS d-mannose 500 mg Capsule 1,000 mg PO QHS polyethylene glycol 3350 [Miralax] 17 gram/dose powder 17 g PO DAILY C Complex 1,000 mg tablet extended release 1,000 mg PO DAILY vitamin B complex [Vitamins B Complex] Tablet 1 tab PO DAILY estradiol 0.01 % (0.1 mg/gram) cream 1 appful vaginal [facility] Rx Instructions: small amount as directed vaginal 3 times per week Disposition Disposition (needs filled in before D/C Order can be placed): Home, Self Care
[2023-02-08] MEDS: Ondansetron 4 MG/2 ML Vial IV (10:43)
--- NOTE | 2023-02-08 10:46 | OP.PCM_ITS ---
Report of Operation Date of Procedure: 02/08/23 Pre-Operative Diagnosis: stress incontinence Post-Operative Diagnosis: same Surgery/Procedure Performed:: midurethral sling, cystoscopy with bilateral ureteral catheters Surgeon: Andreia Edwards Type of Anesthesia: General Grafts/Implants Used: Altis midurethral sling Complications none Admit VTE Documentation VTE Present on Admission: Yes VTE Mechan Device Prophylaxis: SCD's VTE Pharm Prophylaxis ordered?: No Reason prophylaxis not ordered:: Treatment Not Indicated
--- NOTE | 2023-02-08 10:46 | PCM.OPRPT ---
Report of Operation Date of Procedure: 02/08/23 Pre-Operative Diagnosis: stress incontinence Post-Operative Diagnosis: same Surgery/Procedure Performed:: midurethral sling, cystoscopy Surgeon: Andreia Edwards Type of Anesthesia: General Specimen's removed: none Drains: none Estimated Blood Loss (mL): 25cc Description of Procedure: The patient is a 52-year-old female with stress urinary incontinence undergoing a hysterectomy with concomitant mid urethral sling insertion. Informed consent was obtained. The patient was taken to the operating room and placed on the operating room table. Anesthesia monitored the head, neck, airway, IV access and vital signs throughout the case. Once anesthesia was appropriate administered, the patient was placed into dorsolithotomy position and was prepped and draped in usual sterile fashion. A Chen catheter was inserted in sterile conditions. Dr. Thaddeus Hughes performed her portion of the procedure and close the vaginal cuff and the case was turned over to tn. At this time the Chen catheter was removed and the cystoscope was inserted under direct visualization into the urinary bladder. The bladder mucosa was visualized in its entirety finding no evidence of laceration, hemorrhage, mass, ulceration or abnormality. Bilateral ureteral orifices were located in the correct anatomic position in the area of the trigone. Bilateral ureteral jets were observed with no evidence of blood. At this time the cystoscope was removed and the Chen catheter was reinserted. The mid urethra was grasped with an Allis clamp and injected submucosally with vasopressin for hydrostatic dissection and hemostatic control. A midline vertical incision approximately 1.5 cm in length was then made. Sharp and blunt dissection was performed on either side of the urethra with care taken to avoid entrance into the vaginal mucosa or the urethra. After dissection, the mid urethral sling was inserted using the provided trocars. The tines were passed into the obturator complexes bilaterally without difficulty. At this time the tensioning suture was used to position the sling against the urethra without tension. It lay flat after minimally increasing the area of dissection bilaterally. At this time the tensioning suture was cut. The incision was closed using running interlocking 2-0 Vicryl. At this time, the Chen catheter was once again removed and the cystoscope was inserted. No injury was identified within the urinary bladder or the urethra. Bilateral ureteral jets were once again observed. At this time the cystoscope was removed. The patient was then awakened and taken to the recovery room in good condition. There were no complications during this procedure. Grafts/Implants Used: Altis midurethral sling Procedure Start Time: 11:00 Procedure Stop Time: 11:29 Complications none Admit VTE Documentation VTE Present on Admission: Yes VTE Mechan Device Prophylaxis: SCD's VTE Pharm Prophylaxis ordered?: No Reason prophylaxis not ordered:: Treatment Not Indicated
[2023-02-08] MEDS: Bupivacaine 0.25% 30 ML Vial (11:10)
[2023-02-08] MEDS: oxyCODONE 5 MG Tablet PO ×2 (13:41→14:46)
[2023-02-08 14:38] LABS: Hemoglobin 13.6 g/dL (12.0-15.0); Mean Corp Hgb Conc 32.4 g/dL (32-36); Mean Corpuscular Hgb 29.8 pg (27.0-32.0); Mean Corpuscular Volume 92.1 fL (81-99); Mean Platelet Vol. 9.6 fl (6.2-12.0); Platelet Count 262 K/mm3 (150-450); RBC Distribution Width CV 12.1 % (11.6-14.6); RBC Distribution Width SD 41.1 fl (35.1-43.9); Red Blood Count 4.56 M/mm3 (4.2-5.4)
--- NOTE | 2023-02-08 15:25 | DCINST_ITS ---
Discharge Instructions Diet Discharge Diet: No restrictions Activity Discharge Activity: Return to Normal Activity May resume sexual activity in: 6-8 weeks Additional Activity Instructions:: No strenuous activity, no exercise, no swimming, hot tubs or tub bathing Dressing / Incision Call your doctor if your incision/area has: Continuous Slow Oozing, Sudden Increased Bleeding, Increased Pain/ Swelling, Increased Redness, Foul Smelling Discharge and Swelling at the incision site Call your doctor if you observe: Fever of 101 or Higher, Inability to urinate and Inability to have a bowel movement Follow Up Care Please Follow Up With: Andreia Edwards MD Test Results: Test results from this visit will be discussed in further detail at your follow- up appointment, if applicable. Discharge Plan Admission Attending Provider: Billie Pompa Primary Care Provider: Jeanne Quevedo Consulting Providers: Andreia Edwards Discharge Orders/Prescriptions Prescriptions: New oxycodone-acetaminophen [Percocet] 5-325 mg tablet 1 tab PO Q8H PRN (Reason: pain) 5 Days Qty: 15 0RF cephalexin [cephalexin] 500 mg capsule 500 mg PO Q12 3 Days Qty: 6 0RF Continued omeprazole 40 mg capsule,delayed release(DR/EC) 40 mg PO QDAY buspirone 10 mg tablet 10 mg PO BID fluoxetine 40 mg capsule 40 mg PO QDAY atenolol 50 mg tablet 75 mg PO DAILY Excedrin Migraine 250-250-65 mg tablet 1 tab PO ONCE PRN (Reason: MIGRAINES) pravastatin 20 mg tablet 20 mg PO DAILY docusate sodium [Colace] 100 mg capsule 100 mg PO BID phentermine 37.5 mg capsule 37.5 mg PO DAILY Rx Instructions: must administer 30 minutes before or 1-2 hours after breakfast multivitamin Tablet 1 tab PO DAILY cetirizine 10 mg Tablet,Disintegrating 10 mg PO DAILY PRN (Reason: ALLEGIES) Probiotic 10 billion cell Capsule 10,000 mmu cells PO QHS d-mannose 500 mg Capsule 1,000 mg PO QHS polyethylene glycol 3350 [Miralax] 17 gram/dose powder 17 g PO DAILY C Complex 1,000 mg tablet extended release 1,000 mg PO DAILY vitamin B complex [Vitamins B Complex] Tablet 1 tab PO DAILY estradiol 0.01 % (0.1 mg/gram) cream 1 appful vaginal [facility] Rx Instructions: small amount as directed vaginal 3 times per week Disposition Disposition (needs filled in before D/C Order can be placed): Home, Self Care
--- NOTE | 2023-02-08 15:38 | SUR.PHASEII ---
Call received from Dr Pompa's nurse. Dr Pompa reviewed chart/labs/patient progress and states that as long as patient is able to urinate and meets Dr Edwards's criteria, she is comfortable with patient discharging home.
== END 2023-02-08 18:00 | disposition home or self-care (01) ==
LOC: SDC 06:35 → AC 06:35
PROVIDERS: Anesthesiology; Urology; PCP Family Medicine; Referring Provider Obstetrics & Gynecology; Visit Provider Obstetrics & Gynecology
PROC: 0UT9FZZ Resection of Uterus, Via Natural or Artificial Opening With Percutaneous Endoscopic Assistance (ICD-10-PCS; principal; 2023-02-08 08:05)
PROC: 0TJB8ZZ Inspection of Bladder, Via Natural or Artificial Opening Endoscopic (ICD-10-PCS; CPT 57288; 2023-02-08 08:05)
DX: D25.1 Intramural leiomyoma of uterus (principal); E78.5 Hyperlipidemia, unspecified; N39.3 Stress incontinence (female) (male); N95.0 Postmenopausal bleeding; Z87.891 Personal history of nicotine dependence; I10 Essential (primary) hypertension; Z96.643 Presence of artificial hip joint, bilateral; Z98.51 Tubal ligation status
CPT/HCPCS: 58552; 51990; 00944; 36415; 80053; 82962; 83735; 85027; 86850; 86900; 86901; 88307; 93005; J7120; C1758; J2405; J3475

== ENCOUNTER → 2023-11-13 | Outpatient (CLI) | payer OTHER, SELFPAY ==
--- NOTE | 2023-11-13 07:36 | BI_ITS ---
MAMMOGRAPHY - BILATERAL SCREENING REASON FOR EXAM: Female, 53 years old. Routine annual screening examination. PERTINENT HISTORY: Non-contributory. TECHNIQUE: Digital bilateral breast jameson (3D mammographic acquisition) in the CC and MLO projections. 2-D mediolateral oblique (MLO) and craniocaudad (CC) views of both breasts were obtained. CAD: Full Field Digital Mammography with Computer Added Detection was performed. COMPARISON: Comparison is made with prior study dated October 15, 2022 and October 12, 2021. FINDINGS: Breast Composition: There are scattered areas of fibroglandular density. There are no dominant masses or suspicious calcifications. No other significant abnormalities are identified. There has been no significant change since the prior study. BI/SCRN MAMM (CAD)W/JAMESON BILAT IMPRESSION: Stable bilateral screening mammogram. Yearly follow-up mammogram recommended. (A) ASSESSMENT CATEGORY: BIRADS Category 1: Negative. A letter regarding these results will be sent to the patient by the facility within 30 days. Approximately 10% of breast cancers are not detected by mammography. A normal mammogram should not delay biopsy of a clinically suspicious abnormality. [id number] Electronically Signed: Bentley Landa MD at 8:44 EDT ,
== END | disposition home or self-care (01) ==
LOC: OPBI 07:34
PROVIDERS: PCP Family Medicine; Referring Provider Family Medicine; Visit Provider Family Medicine
DX: Z12.31 Encounter for screening mammogram for malignant neoplasm of breast (principal)
CPT/HCPCS: 77063; 77067

== ENCOUNTER → 2024-06-25 | Outpatient (CLI) | payer OTHER, SELFPAY | END | disposition home or self-care (01) | LOC: LABSPEC 08:02 | PROVIDERS: PCP Family Medicine; Visit Provider Physician Assistant Surgical | DX: R82.90 Unspecified abnormal findings in urine (principal) | CPT/HCPCS: 87086; 87088 ==